=== PATIENT | female | born 1980 | race Caucasian/White ===

== ENCOUNTER → 2019-12-27 14:59 | Outpatient (CLI) | payer BC, SELFPAY ==
--- NOTE | ~2019-12-27 | MR_ITS ---
EXAMINATION: MR brain/brain stem wo con EXAM DATE: 12/27/2019 15:51 INDICATION: Headaches, visual disturbance. TECHNIQUE: Magnetic resonance imaging (MRI) of the brain/brain stem obtained without contrast. Sagitt al T1, axial diffusion, gradient echo (T2*), T1, T2, FLAIR sequences obtained. Comparison is made to prior examination from 06/11/2008. FINDINGS: Small arachnoid cyst in the posterior fossa medially just right of midline. This is not a c linically significant finding. There are no areas of restricted diffusion to suggest acute infarction . There is no acute hemorrhage seen on the T2*, a hemosiderin sensitive sequence. No intraparenchym al brain mass. The ventricles are normal in size. There are no extra-axial collections. Flow voids are seen in the cerebral arteries on the T2-weighted sequences consistent with their expected patency . The orbits are unremarkable. Soft tissue is unremarkable. IMPRESSION: 1. Small incidental posterior fossa arachnoid cyst. 2. Otherwise unremarkable brain MRI. Reviewed, dictated and finalized at location B.
== END ==
PROVIDERS: Visit Provider Internal Medicine
DX: R51 Headache (principal); H53.8 Other visual disturbances
CPT/HCPCS: 70551

== ENCOUNTER 2020-07-29 11:21 | Outpatient (CLI) | payer BC, SELFPAY ==
--- NOTE | ~2020-07-29 | XR_ITS ---
XR foot LT min 3V DATE: 07/29/2020 12:45 INDICATION: Plantar heel pain TECHNIQUE: 4 views COMPARISON: None FINDINGS: There is evidence of postoperative change from bunionectomy. There is mild to moderate osteoarthritic change at the first metatarsophalangeal joint. There is minimal plantar and posterior calcaneal enthesopathy. No fracture, dislocation, periosteal reaction or bone destruction is detected. 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
--- NOTE | ~2020-07-29 | XR_ITS ---
XR heel LT min 2V DATE: 07/29/2020 12:45 INDICATION: Left plantar heel pain TECHNIQUE: Axial and lateral views COMPARISON: None FINDINGS: There is mild plantar and posterior calcaneal enthesopathy. No fracture or dislocation or bone destruction of the calcaneus. IMPRESSION: Mild plantar and posterior calcaneal enthesopathy Reviewed, dictated and finalized at location A.
== END 2020-07-29 11:22 | disposition home or self-care (01) ==
LOC: CHSIMG 11:23
PROVIDERS: PCP Internal Medicine; Visit Provider Internal Medicine
DX: M79.672 Pain in left foot (principal)
CPT/HCPCS: 73630; 73650

== ENCOUNTER 2022-03-27 16:02 | Outpatient (CLI) | payer OTHER, SELFPAY ==
--- NOTE | ~2022-03-27 | XR_ITS ---
EXAMINATION: XR knee RT 3V DATE: 03/27/2022 16:29 INDICATION: Right knee pain TECHNIQUE: Three views of the right knee were obtained. COMPARISON: None. FINDINGS: Alignment is normal. No fracture or osteochondral lesion. There is mild tricompartmental os teoarthritis characterized by tiny marginal osteophytes. No joint effusion/synovitis. Soft tissues a re unremarkable. IMPRESSION: 1. No acute osseous abnormality. Reviewed, dictated and finalized at location F. ATIC TEACHER
== END 2022-03-27 16:03 | disposition home or self-care (01) ==
LOC: CHSIMG 16:07
PROVIDERS: PCP Internal Medicine; Visit Provider Internal Medicine
DX: M25.561 Pain in right knee (principal)
CPT/HCPCS: 73562

== ENCOUNTER 2022-04-16 16:06 | Outpatient (RCR) | payer OTHER, SELFPAY ==
--- NOTE | 2022-04-16 16:57 | PTOPEVAL1 ---
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 She reports that her knee feels unstable and her knee crackles a lot. She reports pain with walking and some difficulty when using stairs. She reports some swelling in her knee. Pt reports that sleep is mostly unaffected. Denies numbness and tingling around the knee. She points to pain on the lateral joint line and at the posterior portion of the joint. Pt reports that she has been able to push herself through her pain with all activities but notes she is sometimes slower with activities. Reported Pain Level Pain Score 4: Self Report Assessment PT Clinical Summary Pt presents to PT with R knee pain and demonstrates decreased range of motion, decreased strength, and antalgic gait. She presents with signs and symptoms consistent with potential meniscal or ligamentous involvement. Her current deficits make it more challenging for her to walk and bend/straighten her knee as needed for household activities, exercising, and keeping up with her family. She was provided with an HEP focused on improving mobility and strength within her tolerance. She will benefit from skilled PT to facilitate symptom relief, improve the aforementioned impairments, and return to functional and recreational activities. Plan of Care Interventions Electrical Stimulation,Gait Training,Hot Pack/Cold Pack,Intermittent Compression,Manual Therapy, Neuro Re-education,Patient/Caregiver Educati, Therapeutic Activities,Therapeutic Exercise PT Services Indicated Yes Treatment Frequency and 1x week for 6 visits Duration These treatments will address the objective and functional deficits as defined above. The patient will be advanced safely and appropriately in order for the patient to progress towards his/her prior level of function. Additional exercises will be introduced and as well as a comprehensive home exercise program upon discharge, if needed, ?to ensure carryover of functional gains achieved in the clinic. This treatment plan has been reviewed and agreement upon by the patient.
--- NOTE | 2022-07-16 09:13 | PCPTNOTE ---
mrs. kuo has not been back to skilled PT since 04/24/22. per her last note she continued to report severe pain, and feeling like the R knee was going to give out on her. as of this date, she will be DC'd from skilled PT services and all progress towards goals will be taken from her most recent evaluation/note.
== END 2022-04-24 23:59 | disposition home or self-care (01) ==
LOC: CHSPT 16:06
PROVIDERS: PCP Internal Medicine; Visit Provider Internal Medicine
DX: M25.561 Pain in right knee (principal)
CPT/HCPCS: 97016; 97110; 97140; 97161

== ENCOUNTER → 2022-05-29 16:17 | Outpatient (CLI) | payer OTHER, SELFPAY ==
--- NOTE | ~2022-05-29 | MR_ITS ---
EXAMINATION: MR knee RT wo con DATE: 05/29/2022 17:42 INDICATION: Right knee pain. TECHNIQUE: Magnetic resonance imaging (MRI) of the right knee was performed without intravenous contr ast. Sequences included axial PD-weighted FS FSE, coronal PD-weighted FSE and PD-weighted FS FSE, sag ittal PD-weighted FSE, and sagittal T2-weighted FS FSE. COMPARISON: Right knee radiographs 03/27/2022 FINDINGS: Medial compartment: Medial meniscus is normal. There is shallow partial-thickness cartilage loss of tibial condyle and fe moral condyle. Marginal osteophytes are noted. Lateral compartment: Lateral meniscus is normal. Lateral compartment cartilage is normal. Patellofemoral compartment: There is shallow partial-thickness cartilage loss of patellar medial and lateral facets and median ri dge. There is shallow partial-thickness cartilage loss of central and lateral trochlea. Osteophytes a re noted. Ligaments and tendons: Anterior and posterior cruciate ligaments are normal. Medial collateral ligament and lateral collater al ligament complex are normal. There is mild patellar tendinopathy. Fluid: There is a small knee joint effusion. There is trace fluid in a Fine's cyst. There is mild superfici al infrapatellar bursitis. IMPRESSION: 1. 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 2. Small knee joint effusion. Reviewed, dictated and finalized at location A. [facility] [employer]Y
== END ==
PROVIDERS: PCP Internal Medicine; Visit Provider Internal Medicine
DX: M25.461 Effusion, right knee (principal)
CPT/HCPCS: 73721

== ENCOUNTER 2022-07-31 10:48 | Outpatient (RCR) | payer OTHER, SELFPAY ==
--- NOTE | 2022-07-31 12:11 | PTOPEVAL1 ---
Assessment and note entered by JT File, PT Evaluation Information Assessment Status Evaluation Diagnosis R knee post op meniscus surgery. Onset 07/16/22 Subjective Information patient reports she is unsure how she initially injured the R knee. she reports she did have an injury prior to the knee hurting when she stubbed her toe on a step. she reports she did conservative treatment for knee pain, but ultimately needed meniscus surgery. she reports she has not bent her knee yet since the surgery. she reports she was told to move the ankle and lift the whole leg for her HEP after surgery. patient reports she has been limited to no bending of the knee, and no weight bearing on the R LE. CALLED MD OFFICE AND THEY REPORT SHE HAD A ROOT REPAIR. POST OP PROTOCOL WAS SENT FOR CHART. Reported Pain Level Pain Score 3: Self Report Assessment PT Clinical Summary mrs. kuo is a 42 yo woman who presents to skilled PT serviecs post R knee meniscus root repair. she is limited in rom and weight bearing for 6 weeks post op per protocol. she would benefit from continued skilled PT to address her objective/functional deficits within protocol and progress towards a return to her prior level functional activity performance/quality of life. Plan of Care Interventions Gait Training,Hot Pack/Cold Pack,Intermittent Compression,Manual Therapy,Neuro Re-education, Patient/Caregiver Educati,Therapeutic Activities, Therapeutic Exercise PT Services Indicated Yes Treatment Frequency and 2x weekly for 8 visits Duration These treatments will address the objective and functional deficits as defined above. The patient will be advanced safely and appropriately in order for the patient to progress towards his/her prior level of function. Additional exercises will be introduced and as well as a comprehensive home exercise program upon discharge, if needed, ?to ensure carryover of functional gains achieved in the clinic. This treatment plan has been reviewed and agreement upon by the patient.
--- NOTE | 2022-09-03 17:38 | PTOPREEVAL ---
Assessment and note entered by JT File, PT Evaluation Information Assessment Status Re-evaluation Diagnosis R knee post op meniscus surgery. Onset 07/16/22 Subjective Information patient reports she feels better this date. she reports she does feel she has more swelling lately . she reports she has been working and been up on her feet more. she reports she is confused about her weight bearing status while walking. she reports she is nervous to put too much weight through the R LE. Reported Pain Level Pain Score 2: Self Report Pain Score 4: Self Report Assessment PT Clinical Summary mrs. kuo presents to skilled PT services for her 8th skilled therapy visit. as of this date, she has made great progress in her rom of the R knee. she continues to have swelling, but has progressed to 50% weight bearing. she is now in phase 3 of the post operative protocol, and is allowed to progress to WBAT 25% at a time. she would benefit from skilled PT services to continue to progress towards return to prior level weight bearing, strength, and gait mechanics slowly following her post operative protocol. Plan of Care Interventions Gait Training,Hot Pack/Cold Pack,Intermittent Compression,Manual Therapy,Neuro Re-education, Patient/Caregiver Educati,Therapeutic Activities, Therapeutic Exercise PT Services Indicated Yes Treatment Frequency and continue skilled PT 2x weekly for 8 more visits Duration These treatments will address the objective and functional deficits as defined above. The patient will be advanced safely and appropriately in order for the patient to progress towards his/her prior level of function. Additional exercises will be introduced and as well as a comprehensive home exercise program upon discharge, if needed, ?to ensure carryover of functional gains achieved in the clinic. This treatment plan has been reviewed and agreement upon by the patient.
== END 2022-09-24 23:59 | disposition home or self-care (01) ==
LOC: CHSPT 10:48
DX: S83.241D Other tear of medial meniscus, current injury, right knee, subsequent encounter (principal)
CPT/HCPCS: 97016; 97110; 97112; 97161; 97530

== ENCOUNTER 2023-01-31 08:33 | Outpatient (CLI) | payer OTHER, SELFPAY ==
[2023-01-31 08:56] LABS: Basophils Absolute Auto 0.04 K/mm3 (0.00-0.10); Basophils Percent Auto 0.6 % (0.0-1.0); Eosinophils Absolute Auto 0.19 K/mm3 (0.02-0.50); Eosinophils Percent Auto 2.7 % (1.0-6.0); Hematocrit 40.4 % (35.0-49.0); Hemoglobin 14.2 g/dL (12.0-15.0); Immature Granulocyte Absolute 0.04 K/mm3 (0.00-0.00); Immature Granulocyte Percent A 0.6 % (0.0-0.0); Lymphocytes Absolute Auto 2.77 K/mm3 (1.10-4.50); Lymphocytes Percent Auto 39.3 % (18.0-42.0); Mean Corpuscular HGB Conc 35.1 g/dL (32.0-36.0); Mean Corpuscular Hemoglobin 34.3 pg (27.0-31.0); Mean Corpuscular Volume 97.6 fL (78.0-102.0); Monocytes Absolute Auto 0.44 K/mm3 (0.10-0.90); Monocytes Percent Auto 6.2 % (2.0-11.0); Neutrophils Absolute Auto 3.6 K/mm3 (1.7-7.2); Neutrophils Percent Auto 50.6 % (50.0-70.0); Platelet Count Result 276 K/mm3 (150-420); Red Blood Count 4.14 M/mm3 (4.20-5.40); Red Cell Distribution Width 12.8 % (11.6-14.4); White Blood Count 7.1 K/mm3 (4.8-10.8)
[2023-01-31 09:09] LABS: Appearance Urine Clear (Clear); Bilirubin Urine Negative (Negative); Blood Urine Trace-Intact (Negative); Color Urine Light Yellow (Yellow); Glucose Urine UA Negative (Negative); Ketones Urine Negative (Negative); Leukocyte Esterase Ur 2+ (Negative); Nitrate Urine Negative (Negative); Protein Urine Negative (Negative); Specific Grav Ur >= 1.030 (1.010-1.020); Urobilinogen Urine 0.2 mg/dL (0.2-1.0); pH Urine 5.5 (5.0-8.0)
[2023-01-31 09:44] LABS: Add Urine Microscopic? YES; Bacteria Urine Rare /hpf; RBC Urine 0-2 /hpf (0-2); Squamous Epithelial Cell Urine Moderate /hpf (Few)
[2023-01-31 09:45] LABS: Mucus Urine Moderate /lpf
[2023-01-31 10:23] LABS: Alanine Aminotransferase 55 U/L (14-59); Alkaline Phosphatase 100 U/L (46-116); Anion Gap 13 mmol/L (8-16); Aspartate Amino Transferase 26 U/L (15-37); Bilirubin,Total 0.6 mg/dL (0.00-1.00); Blood Urea Nitrogen 11 mg/dL (7-18); CRP 0.7 mg/dL (0.0-0.9); Calcium 9.6 mg/dL (8.5-10.1); Carbon Dioxide 25 mmol/L (21-32); Chloride 104 mmol/L (98-108); Cholesterol 251 mg/dL (0-200); Creatine Kinase 140 U/L (26-192); Estimated Glomerular Filt Rate > 60; Free T3 3.12 pg/mL (2.18-3.98); Glucose 89 mg/dL (70-99); HDL Direct 38 mg/dL (40-60); LDL Cholesterol Calculated 150 mg/dL (<130); Osmolality Calculated 292 mOsm/kg (285-295); Potassium 4.4 mmol/L (3.5-5.1); Sodium 142 mmol/L (136-145); Thyroid Stimulating Hormone 1.07 uIU/mL (0.36-3.74); Total Protein 7.2 g/dL (6.4-8.2); Triglycerides 314 mg/dL (0-150)
[2023-02-05 12:01] LABS: Aldolase 6.2 U/L (<=8.1)
== END 2023-01-31 08:34 | disposition home or self-care (01) ==
LOC: CHSLAB 08:35
PROVIDERS: PCP Internal Medicine; Visit Provider Internal Medicine
DX: Z00.00 Encounter for general adult medical examination without abnormal findings (principal); R51.9 Headache, unspecified; M35.3 Polymyalgia rheumatica
CPT/HCPCS: 36415; 80053; 80061; 81001; 82085; 82550; 84439; 84443; 84481; 85025; 86140

== ENCOUNTER 2023-06-22 08:39 | Emergency (ER) | payer OTHER, SELFPAY ==
[2023-06-22 08:39] VITALS: BP 143/101; PULSE 88; RESP 20; TEMP 36.1; O2SAT 96
--- NOTE | 2023-06-22 08:58 | ED.GENADULT ---
HPI - General Adult General Chief complaint: Skin/Abscess/Foreign Body Stated complaint: rash Time Seen by Provider: 06/22/23 08:50 History of Present Illness HPI narrative: 43 years old white female drove herself to the emergency room complaining of itching rash at the upper extremities, lower extremities and front of the abdomen started last night. Patient started on diet medications 1 month ago, patient also been cleaning removing old carpets at home in the last few weeks. She denies difficulty swallowing or breathing. History of IV contrast allergy. Related Data Home Medications Medication Instructions Recorded Confirmed erenumab-aooe 140 mg/mL 140 mg subcut MONTHLY 06/22/23 06/22/23 subcutaneous auto-injector (Aimovig Autoinjector) ondansetron 4 mg disintegrating 4 mg PO Q6-8H PRN Nausea 06/22/23 06/22/23 tablet Allergies Allergy/AdvReac Type Severity Reaction Status Date / Time egg Allergy Mild Hives Verified 06/22/23 08:48 iodine Allergy Mild CONTRAST Unverified 06/22/23 08:48 DYE Contrast Media Allergy Mild RAISED Uncoded 05/30/22 14:37 AREA REDDENED Review of Systems Review of Systems: All systems reviewed & are unremarkable except as noted in HPI and below Exam Narrative: General appearance: Well-developed, well-nourished Skin: Normal color , scattered hives upper extremity lower extremity abdomen anteriorly Head: Normocephalic, nontraumatic Eyes: Clear conjunctiva ENT: Oropharynx normal, ears normal, nose normal Neck: Supple, nontender Chest and respiratory: Airway patent, no respiratory distress, no accessory muscle use Heart: Regular rate/rhythm Abdomen: Soft, nontender, no organomegaly, quiet bowel sounds Vascular: Normal peripheral pulses, normal capillary refill. Musculoskeletal: Normal range of motion, nontender back Neurologic: Alert and oriented ?3, ANIMAL NURSE is normal as tested, no gross motor deficit Course Vital Signs Vital signs: Vital Signs Temperature 36.1 C L 06/22/23 08:39 Pulse Rate 88 06/22/23 08:39 Respiratory Rate 20 06/22/23 08:39 Blood Pressure 143/101 H 06/22/23 08:39 Pulse Oximetry 96 06/22/23 08:39 Oxygen Delivery Room Air 06/22/23 08:39 Temperature 36.1 C L 06/22/23 08:39 Pulse Rate 88 06/22/23 08:39 Respiratory Rate 20 06/22/23 08:39 Blood Pressure 143/101 H 06/22/23 08:39 Pulse Oximetry 96 06/22/23 08:39 Oxygen Delivery Room Air 06/22/23 08:39 Medical Decision Making MDM Narrative Medical decision making narrative: in the ED patient received epinephrine shot, 60 mg prednisone p.o., with remarkable improvement. Contact dermatitis versus drug induced dermatitis is my concern. Differential Diagnosis Differential Diagnosis: contact dermatitis , drug induced allergy, cleaning old carpet related allergy Vital Signs Vital Signs: Vital Signs Temperature 36.1 C L 06/22/23 08:39 Pulse Rate 88 06/22/23 08:39 Respiratory Rate 20 06/22/23 08:39 Blood Pressure 143/101 H 06/22/23 08:39 Pulse Oximetry 96 06/22/23 08:39 Oxygen Delivery Room Air 06/22/23 08:39 Temperature 36.1 C L 06/22/23 08:39 Pulse Rate 88 06/22/23 08:39 Respiratory Rate 20 06/22/23 08:39 Blood Pressure 143/101 H 06/22/23 08:39 Pulse Oximetry 96 06/22/23 08:39 Oxygen Delivery Room Air 06/22/23 08:39 Critical Care Time Critical Care Time Critical Care Time: No Discharge Plan Discharge Clinical Impression: Allergic reaction Patient Disposition: Home, Self-Care Condition: Stable Instructions: Urticaria (ED) Additional Instructions: Return if symptoms are worsening , call your family namrata
[2023-06-22] MEDS: predniSONE 20 MG TABLET 60 MG PO (09:07)
[2023-06-22] MEDS: EPINEPHrine HCL INJ 1 MG/ML AMPUL 0.3 MG IM (09:07)
== END 2023-06-22 09:21 | disposition home or self-care (01) ==
LOC: CHSED 09:07
PROVIDERS: Emergency Provider Emergency Medicine; PCP Internal Medicine
DX: T78.40XA Allergy, unspecified, initial encounter (principal)
CPT/HCPCS: 96372; 99283; J0171; J7512

== ENCOUNTER 2024-02-24 08:00 | Outpatient (RCR) | payer OTHER, SELFPAY ==
--- NOTE | 2024-02-24 08:04 | OPREHPOC ---
Outpatient Therapy Plan of Care This is a Multidisciplinary Plan of Care that may contain components documented by all disciplines (PT, OT, and ST.) PT Problem 1 PT Problem #1 Knowledge Deficit PT Goal 1 Goal / Goal Update The patient will be independent in a home exercise program. Target Visit 4 PT Problem 2 PT Problem #2 Pain PT Goal 1 Goal / Goal Update The patient will report no greater than 2/10 right knee pain with ambulation. Target Visit 9 PT Problem 3 PT Problem #3 Impaired Range of Motion PT Goal 1 Goal / Goal Update 1. The patient will demonstrate 0 degrees right knee extension AROM to normalize gait. 2. The patient will demonstrate 120 degrees right knee flexion AROM to navigate stairs reciprocally. Target Visit 18 PT Problem 4 PT Problem #4 Impaired Strength PT Goal 1 Goal / Goal Update The patient will demonstrate 5/5 strength in the right hip and knee to perform ADLs. Target Visit 18 PT Problem 5 PT Problem #5 Impaired Functional Mobil PT Goal 1 Goal / Goal Update 1. The patient will demonstrate 25% or less self perceived disability per the LEFS. 2. The patient will demonstrate the ability to ambulate 1,200 feet during the 6 minute walk test without an AD to return to community ambulation. Target Visit 18
--- NOTE | 2024-02-24 08:05 | PTOPEVAL1 ---
Assessment and note entered by Jackie Walters, PT Evaluation Information Assessment Status Evaluation Diagnosis s/p R TKA ICD-10 Condition Codes (PT) M25.561 Subjective Information Jackie Espinal reports she had her right knee replaced on 02/17/24. She has a history of meniscus root repair approximately a year ago. She re-tore the meniscus and developed osteoarthritis. She tried injections and that failed too. She is using a CPM at home for about 4 hours. She is not having home health and has been using a walker for ambulation. She reports pain comes and goes. She reports her knee pain is preventing her from sleeping well and she has been having tingling around the knee. She reports she is using pain medication regularly because she tried to go without and had a lot of pain. heels slides, ankle pumps, quad set Reported Pain Level Pain Score 5: Self Report Assessment PT Clinical Summary Jackie Espinal presents 1 week s/p right total knee arthroplasty. She is having difficulty with sleeping, walking, standing, and bending her knee. She objectively demonstrates decreased right knee AROM, decreased right knee and hip strength, impaired balance, impaired gait, and decreased functional abilities. She will benefit from skilled PT to address these limitations. Plan of Care Interventions Electrical Stimulation,Gait Training,Hot Pack/Cold Pack,Intermittent Compression,Manual Therapy, Neuro Re-education,Patient/Caregiver Educati, Therapeutic Activities,Therapeutic Exercise PT Services Indicated Yes Treatment Frequency and 3 times a week for 18 visits Duration These treatments will address the objective and functional deficits as defined above. The patient will be advanced safely and appropriately in order for the patient to progress towards his/her prior level of function. Additional exercises will be introduced and as well as a comprehensive home exercise program upon discharge, if needed, ?to ensure carryover of functional gains achieved in the clinic. This treatment plan has been reviewed and agreement upon by the patient.
--- NOTE | 2024-03-15 08:57 | PTOPPROG ---
Assessment and note entered by Vladimir [facility] Evaluation Information Assessment Status Progress Diagnosis s/p R TKA ICD-10 Condition Codes (PT) M25.561 Onset 02/17/24 Subjective Information Pt. reports she has been very sore all weekend. She states that she has gotten more active at home . She continues to not tightness limiting the knee mobility. She states that she is taking time to elevate the knee. She states that she would like to continue to improve right knee mobility. Assessment PT Clinical Summary Pt. has attended a total of 10 treatment sessions. She has progressed in regards to strength, ROM and gait. She continues to have faulty mechanics with ambulation and continues to present with edema at the right knee. At this time continued treatment per POC is indicated in order to further reduce edema, improve strength, improve extension and and achieve normal gait. Plan of Care Interventions Electrical Stimulation,Gait Training,Hot Pack/Cold Pack,Intermittent Compression,Manual Therapy, Neuro Re-education,Patient/Caregiver Educati, Therapeutic Activities,Therapeutic Exercise PT Services Indicated Yes Treatment Frequency and Continue treatment 3x/week for 6 visits Duration These treatments will address the objective and functional deficits as defined above. The patient will be advanced safely and appropriately in order for the patient to progress towards his/her prior level of function. Additional exercises will be introduced and as well as a comprehensive home exercise program upon discharge, if needed, ?to ensure carryover of functional gains achieved in the clinic. This treatment plan has been reviewed and agreement upon by the patient.
--- NOTE | 2024-03-30 16:27 | OPREHPOC ---
Outpatient Therapy Plan of Care This is a Multidisciplinary Plan of Care that may contain components documented by all disciplines (PT, OT, and ST.) PT Problem 1 PT Problem #1 Knowledge Deficit PT Goal 1 Goal / Goal Update The patient will be independent in a home exercise program. Target Visit 4 Progress Met PT Problem 2 PT Problem #2 Pain PT Goal 1 Goal / Goal Update The patient will report no greater than 2/10 right knee pain with ambulation. Target Visit 9 Progress Not Met PT Problem 3 PT Problem #3 Impaired Range of Motion PT Goal 1 Goal / Goal Update 1. The patient will demonstrate 0 degrees right knee extension AROM to normalize gait. 2. The patient will demonstrate 120 degrees right knee flexion AROM to navigate stairs reciprocally. Target Visit 18 Progress Met PT Problem 4 PT Problem #4 Impaired Strength PT Goal 1 Goal / Goal Update The patient will demonstrate 5/5 strength in the right hip and knee to perform ADLs. Target Visit 18 Progress Met PT Problem 5 PT Problem #5 Impaired Functional Mobil PT Goal 1 Goal / Goal Update 1. The patient will demonstrate 25% or less self perceived disability per the LEFS. 2. The patient will demonstrate the ability to ambulate 1,200 feet during the 6 minute walk test without an AD to return to community ambulation. Target Visit 18 Progress Met
--- NOTE | 2024-03-30 16:27 | PTOPDC ---
Assessment and note entered by JT File, PT Evaluation Information Assessment Status Discharge Diagnosis s/p R TKA ICD-10 Condition Codes (PT) M25.561 Onset 02/17/24 Subjective Information patient had her follow up with the MD today. she reports she did have a Doppler of the R LE and is negative for any clots. she reports she returns to see her surgeon on 04/13/24. she reports the knee still swells. she reports she feels the most pain in the calf and the front of the thigh of the R LE. she reports she returns to work tomorrow. Reported Pain Level Pain Score 4: Self Report Assessment PT Clinical Summary mrs. kuo presents to skilled PT for her 16th skilled PT visit. she presents today having met all goals for skilled PT except for her pain levels. her pain now is less with the knee and more muscular in the quadriceps and gastroc of the R LE. she was educated in exercises to improve her flexibility in these muscles that will help to reduce these symptoms. she will DC skilled PT and continue with HEP independent at home. Plan of Care PT Services Indicated Yes
== END 2024-03-30 16:33 | disposition home or self-care (01) ==
LOC: CHSPT 08:00
PROVIDERS: Visit Provider Orthopaedic Surgery
DX: Z47.1 Aftercare following joint replacement surgery (principal); Z96.651 Presence of right artificial knee joint
CPT/HCPCS: 97014; 97016; 97110; 97116; 97150; 97161; 97530; G0283

== ENCOUNTER 2024-05-19 12:54 | Outpatient (CLI) | payer OTHER, SELFPAY ==
--- NOTE | ~2024-05-19 | MM_ITS ---
EXAMINATION: MM screening tyler BI w dolly HISTORY: Screening TECHNIQUE: Craniocaudal and mediolateral oblique 3-D tomosynthesis images were obtained and synthetic 2-D images were generated. CAD analysis was submitted and interpreted. COMPARISON: No prior mammogram is available for comparison at this institution. BREAST PARENCHYMAL COMPOSITION: Not Dense: The breasts are almost entirely fatty. FINDINGS: There is an oval 12 mm mass in the lower outer quadrant of the left breast, posterior third . There are no suspicious calcifications, architectural distortion or masses in the right breast to s uggest malignancy. IMPRESSION: 1. Left breast mass, lower outer quadrant, posterior third. 2. Additional mammographic views and possible breast ultrasound are recommended. BI-RADS Category 0: Incomplete: Needs additional imaging evaluation. Reviewed, dictated and finalized at location B. RINTENDENT MAINTENANCE IMPRESSION: 1. Left breast mass, lower outer quadrant, posterior third. 2. Additional mammographic views and possible breast ultrasound are recommended . BI-RADS Category 0: Incomplete: Needs additional imaging evaluation.
== END 2024-05-19 12:55 | disposition home or self-care (01) ==
PROVIDERS: PCP Internal Medicine; Visit Provider Internal Medicine
DX: Z12.31 Encounter for screening mammogram for malignant neoplasm of breast (principal); R92.8 Other abnormal and inconclusive findings on diagnostic imaging of breast
CPT/HCPCS: 77063; 77067

== ENCOUNTER 2024-05-21 08:54 | Outpatient (CLI) | payer OTHER, SELFPAY ==
--- NOTE | ~2024-05-21 | MMUS_ITS ---
EXAMINATION: MM diagnostic tyler LT w dolly, US breast LT limited HISTORY: Follow-up left breast mass TECHNIQUE: Additional 3-D tomosynthesis images of the left breast were performed and synthetic 2-D im ages were generated. CAD analysis was submitted and interpreted. High resolution Limited left breast ultrasound was performed. COMPARISON: 05/19/2024 BREAST PARENCHYMAL COMPOSITION: Not Dense: The breasts are almost entirely fatty. FINDINGS: MAMMOGRAPHIC FINDINGS: There is an oval mass with indistinct margins in the lower outer quadrant of the left breast, posteri or third. There are 2 associated punctate calcifications. ULTRASOUND: Limited left breast ultrasound: At 5:00, 10 cm from the nipple there is an oval hypoechoic mass which is mostly solid with dense posterior shadowing, parallel orientation, circumscribed margins measurin g 13 x 9 x 5 mm. No internal vascularity. IMPRESSION: 1. Oval 13 mm left breast mass at 5:00, 10 cm from the nipple. 2. Ultrasound-guided left breast biopsy recommended. BI-RADS category 4, suspicious findings. Reviewed, dictated and finalized at location B. [employer] IMPRESSION: 1. Oval 13 mm left breast mass at 5:00, 10 cm from the nipple. 2. Ultrasound-guided left breast biopsy recommended. BI-RADS category 4, suspicious findings.
== END 2024-05-21 08:55 | disposition home or self-care (01) ==
PROVIDERS: PCP Internal Medicine; Visit Provider Internal Medicine
DX: R92.8 Other abnormal and inconclusive findings on diagnostic imaging of breast (principal)
CPT/HCPCS: 76642; 77061; 77065; G0279

== ENCOUNTER 2024-06-13 13:57 | Emergency (ER) | payer OTHER, SELFPAY ==
[2024-06-13 13:58] VITALS: BP 144/100; PULSE 103; RESP 18; TEMP 36.6; O2SAT 97
--- OUTSIDE RECORDS SUMMARY | 2024-06-13 13:59 | XMS_ITS | Clinical Summary ---
Author Organization [facility] Address [address] [place] [address] Phone Care Team Providers Care Marketing Effectiveness Manager Name Role Phone Duke Castillo MD Primary Care Provider Allergies Active Allergy Reactions Criticality Noted Date Comments Iodinated Contrast Media Hives High 12/24/2013 Medications HYDROcodone-acet aminophen (VICODIN HP) 10-300 mg Tablet Take 1 Tab by mouth every 4 hours as needed. Active CYCLOBENZAPRINE HCL (FLEXERIL ORAL) Take by mouth. Active diclofenac sodium (VOLTAREN) 75 mg Tablet, Delayed Release (E.C.) Take 75 mg by mouth 2 times daily. Active pentosan polysulfate sodium (ELMIRON) 100 mg CapsuleIndicatio ns:Bladder pain Take 1 Cap by mouth 3 times daily before meals. 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 Gender Identity Not on file Sexual Orientation Not on file 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 Not on file Not on valente e Not on file Last Filed Vital Signs Vital Sign Reading Time Taken Comments Blood Pressure 138/70 12/24/2013 8:44 AM CDT Pulse - - Temperature - - Respiratory Rate - - Oxygen Saturation - - Inhaled Oxygen Concentration - - Weight 96.6 kg (213 lb) 12/24/2013 8:44 AM CDT Height 163.8 cm (5' 4.5 ) 12/24/2013 8:44 AM CDT Body Mass Index 36 12/24/2013 8:44 AM CDT Plan of Treatment Health Maintenance Due Date Last Done Comments DTAP/TDAP/TD VACCINES (1 - Tdap) 1999 HEPATITIS B VACCINES (1 of 3 - 19+ 3-dose series) 1999 CERVICAL CANCER SCREENING 05/12/20142011 (Previously completed) BREAST CANCER SCREENING 2020 INFLUENZA VACCINE (#1) 2023 Preventative Visit- Commercial 05/12/2024 HPV VACCINES Aged Out No longer eligi ble based on patient's age to complete this topic Insurance [employer]UE PPO Care Teams Marketing Effectiveness Manager Relationship Specialty [place] [id number] [address] PCP - General 01/08/00
--- OUTSIDE RECORDS SUMMARY | 2024-06-13 13:59 | XMS_ITS | Encounter Summary ---
Author Organization [facility] Address [address] [facility] [address] [place] [address] Phone Care Team Providers Care Heel Cover Splitter Name Role Phone Yehuda Hearn MD Primary Care Provider [phone] Yehuda Hearn MD Unavailable [phone] Jeff Browne NP Unavailable [phone] Reason for Visit * Reason Onset Date Comments Medical Question/Miscellaneous 06/04/2024 Encounter Details Date Type Department Care Team (Late st Contact Info) Description 06/04/2024 Telephone [facility] Surgery [address] [facility] Floor [address] [place] [address] Annamarie Harper NP [address] [address] Medical Question/Miscellaneous Social History Tobacco Use Types Packs/Day Years Used Date Smoking Tobacco: Never Smokeless Tobacco: Never AUDIT-C Answer Date Recorded Q1: How often do you have a drink containing alcohol? Never 05/27/2024 Q2: How many drinks containi ng alcohol do you have on a typical day when you are drinking? Patient does not drink Q3: How often do you have si x or more drinks on one occasion? Never 05/27/2024 PHQ-2 Answer Date Recorded PHQ-2 Total Score (If total score is 3 or more points, staff should administer the PHQ-9) 1 06/12/2023 Personal Safety Answer Date Recorded Have you ever been in or are you currently in a harmful physical or emotional relationship or is someone making you feel afraid or unsafe? Denies 02/17/2024 Comments No Sex and Gender Information Value Date Recorded Sex Assigned at Not on file Legal Sex Female 4:57 AM ARCH PAD CEMENTER Gender Identity Female 02/05/2024 9:37 AM CDT Sexual Orientation Straight 12/24/2022 10 :40 AM CDT documented as of this encounter Miscellaneous Notes * Telephone Encounter - Maria Elena Peña - 06/04/2024 2:40 PM CST Patient Query: Was an attempt to transfer to the assigned clinical staff or backline? no Reason for call?: Patient requesting to change their ultrasound to the same day as their return appt so they don't have to take 2 days off of work for them please (Read message back to caller and ask them if there is anything else they'd like to add to the message) Who is the caller: Jackie Espinal What is the best number for them to contact for a call back: [phone] PAD CEMENTER documented in this encounter Plan of Treatment Not on file documented as of this encounter Visit Diagnoses Not on filedocumented in this encounter Care Teams Heel Cover Splitter Relationship Specialty Start Date End Date Yehuda Hearn MD PCP - General 04/24/20 Yehuda Hearn MD Internal Medicine 04/24/20 Jeff Browne NP [address] [place] [address] [address] DANIELSON [address] [place] [id number] Nurse Practitioner Orthopedic Surgery 02/17/24 documented as of this encounter
--- OUTSIDE RECORDS SUMMARY | 2024-06-13 13:59 | XMS_ITS | Clinical Summary ---
Author Organization [facility] Address [address] [place] [address]. [place], [place] [address] [place] [address] Care Team Providers Care Internal Control Specialist Name Role Phone Yehuda Hearn MD Primary Care Provider [phone] Allergies No known active allergies Medications rizatriptan 10 MG disintegrating tablet Take 10 mg by mouth as needed for Migraine. May repeat in 2 hours if needed times one dose Active SUMAtriptan 100 MG tablet Take 100 mg by mouth 2 (two) times daily as needed for Migraine. Take 1 tablet at onset of symptoms, may take 1 tablet 2 hours later. Max of 2 tablets in 24-hour period. Active predniSONE 20 MG tablet Take 20 mg by mouth daily. Active Active Problems No known active problems Family History Medical History Relation Comments No Known Problems Brother No Known Problems Father Diabetes Mother Heart Disease Mother Hyperlipidemia Mother Hypertension Mother Relation Status Comments Brother Father Mother Alive Social History Tobacco Use Types Packs/Day Years Used Date Smoking Tobacco: Never Smokeless Tobacco: Never Alcohol Use Standard Drinks/Week Comments Yes 0 (1 standard drink = 0.6 oz pur e alcohol) rarely Comments No Sex and Gender Information Value Date Recorded Sex Assigned at Not on file Legal Sex Female 4:14 PM CDT Gender Identity Not on file Sexual Orientation Not on file Last Filed Vital Signs Vital Sign Reading Time Taken Comments Blood Pressure 148/102 12/23/2019 5:08 AM CDT Pulse 68 12/23/2019 5:08 AM CDT Temperature 37 ??C (98.6 ??F) 12/23/2019 5:08 AM CDT Respiratory Rate 20 12/23/2019 5:08 AM CDT Oxygen Saturation 100% 12/23/2019 5:08 AM CDT Inhaled Oxygen Concentration - - Weight 98.9 kg (218 lb) 12/23/2019 5:08 AM CDT Height 167.6 cm (5' 6 ) 12/23/2019 5:08 AM CDT Body Mass Index 35.19 12/23/2019 5:08 AM CDT Plan of Treatment Health Maintenance Due Date Last Done Comments Annual Physical 1983 Hepatitis C 1998 DTaP, Tdap and Td Vaccines ( 1 - Tdap) 1999 Hepatitis B Vaccines (1 of 3 - 19+ 3-dose series) 1999 Mammogram Screening 2020 COVID-19 Vaccine (2023-2 5 season) 2024 Influenza Adult (#1) 2024 HPV Vaccines Aged Out No longer eligi ble based on patient's age to complete this topic Meningococcal B Vaccine Aged Out No l onger eligible based on patient's age to complete this topic Meningococcal Vaccine Aged Out No josue jack eligible based on patient's age to complete this topic Pneumococcal Vaccine: Pediat rics (0 to 5 Years) and At-Risk Patients (6 to 64 Years) Aged Out No longer eligible b ased on patient's age to complete this topic RSV Immunizations Under 20 Months Aged Out No longer eligible based on patient's age to complete this topic Insurance [facility] Care Teams Internal Control Specialist Relationship Specialty Start Date End Date Yehuda Hearn MD [address] [place] [address] PCP - General INTERNAL MEDICINE 01/07/19
--- OUTSIDE RECORDS SUMMARY | 2024-06-13 13:59 | XMS_ITS | Referral Summary ---
Author Organization [facility] Address [address] [place] [address] Care Team Providers Care Facility Maintenance Mechanic Name Role Phone Yehuda Hearn MD Primary Care Provider [phone] Yehuda Hearn MD Unavailable [phone] Jeff Browne NP Unavailable [phone] Encounters Date Type Department Care Team Description 06/04/2024 Telephone [facility] [address] [place] [address] Floor [address] [place] [address] Annamarie Harper NP Medical Question/Miscellane ous 06/03/2024 5:23 PM ASSURANCE OFFICER - 06/03/2024 11:59 PM ASSURANCE OFFICER Hospital Encounter [facility] [address] [place] [address] Discharge Disposition: Discharge to home or self care 06/01/2024 Orders Only [facility] [address] [place] [address] 8 [place] [address] Annamarie Harper, UMA 05/28/2024 Orders Only [facility] [address] [place] [address] 8 [place] [address] Jocelyn Mandel RN Abnormal mammogram (Primary Dx); Mass of lower outer quadrant of left breast 05/27/2024 7:46 AM ASSURANCE OFFICER - 05/27/2024 11:59 PM ASSURANCE OFFICER Hospital Encounter [facility] [address] [place] [address] [address] [address] Discharge Disposition: Discharge to home or self care 05/27/2024 3:45 PM ASSURANCE OFFICER Office Visit [facility] [address] [place] [address] [address] [address] Jeff Browne NP Status post total knee replacement, right (Primary Dx); Sprain of medial collateral ligament of right knee, subsequent encounter 05/21/2024 9:20 AM ASSURANCE OFFICER Ancillary Procedure [facility] 05/21/2024 9:10 AM ASSURANCE OFFICER Ancillary Procedure [facility] 05/19/2024 1:10 PM ASSURANCE OFFICER Ancillary Procedure [facility] 04/29/2024 7:45 AM ASSURANCE OFFICER - 04/29/2024 11:59 PM ASSURANCE OFFICER Hospital Encounter [facility] [address] [place] [address] [address] [address] Discharge Disposition: Discharge to home or self care 04/29/2024 2:00 PM ASSURANCE OFFICER Office Visit [facility] [address] [place] [address] [address] [address] Jeff Browne NP Status post total knee replacement, right (Primary Dx); Sprain of medial collateral ligament of right knee, initial encounter 04/13/2024 7:56 AM ASSURANCE OFFICER - 04/13/2024 11:59 PM ASSURANCE OFFICER Hospital Encounter [facility] [address] [place] [address] [address] [address] Discharge Disposition: Discharge to home or self care 04/13/2024 3:45 PM ASSURANCE OFFICER Office Visit [facility] [address] [place] [address] [address] [address] Jeff Browne NP Status post total knee replacement, right (Primary Dx) 03/30/2024 11:00 AM ASSURANCE OFFICER Office Visit [facility] [address] [place] [address] [address] [place] [address] Valarie Marcelo NP Status post total knee replacement, right (Primary Dx) 03/30/2024 7:11 AM ASSURANCE OFFICER - 03/30/2024 11:59 PM ASSURANCE OFFICER Hospital Encounter [facility] [address] [place] [address] Status post total knee replacement, right Discharge Disposition: Discharge to home or self care 03/29/2024 Orders Only [facility] [address] [place] [address] [address] [place] [address] Piotr Hallman PA Status post total knee replacement, right (Primary Dx) 03/29/2024 Orders Only [facility] [address] [place] [address] [address] [place] [address] Piotr Hallman PA Status post total knee replacement, right (Primary Dx) 03/29/2024 Telephone [facility] [address] [place] [address] Piotr Hallman PA 03/19/2024 Telephone [facility] [address] [place] [address] [address] [place] [address] Roosevelt Winchester MD from Last 3 Months Allergies Active Allergy Reactions Criticality Noted Date Comments Iodinated Contrast Media Hives High 12/24/2013 Topiramate Other (See comments) Low 04/03/2020 Ringing in ears Medications erenumab-aooe 140 mg/mL auto-injector Inject 140 mg under the skin every 28 (twenty-eight) days 3 mL 3 3 Active rizatriptan (MAXALT) 10 mg tabletIndicatio ns:Migraine Take 1 tablet (10 mg total) by mouth once as needed for migraine May repeat in 2 hours if unresolved. Do not exceed 30 mg in 24 hours. 27 tablet 3 3 Active ondansetron (ZOFRAN) 4 mg tabletIndicatio ns:Prevention of Post-Operative Nausea and Vomiting Take 1 tablet (4 mg total) by mouth every 6 (six) hours as needed for nausea or vomiting 30 tablet 1 4 Active diclofenac sodium (VOLTAREN) 1 % gel Apply 4 g topically 4 (four) times a day 100 g 3 4 Active celecoxib (CeleBREX) 100 mg capsule Take 1 capsule (100 mg total) by mouth 2 (two) times a day 60 capsule 1 4 Active pregabalin (LYRICA) 75 mg capsule 4 Active HYDROcodone-travis taminophen (NORCO) 5-325 mg per tabletIndicatio ns:Pain Take 1-2 tablets by mouth every 4 (four) hours as needed for pain Max 8 tabs per day 42 tablet 5 Active Active Problems Problem Noted Date Diagnosed Date S/P TKR (total knee replacement), right 02/17/20 Primary osteoarthritis of right knee 01/30/2024 Tear of medial meniscus of knee 06/28/2022 09/23/2022 Migraine without aura, with intractable migraine, so stated, with status migrainosus 04/05/2020 Subarachnoid cyst 04/05/2020 Endometriosis 12/24/2013 Chronic pelvic pain in female 12/24/2013 Bladder pain 12/24/2013 09/23/2022 Social History Tobacco Use Types Packs/Day Years Used Date Smoking Tobacco: Never Smokeless Tobacco: Never Tobacco Cessation:Counseling Given: Not Answered AUDIT-C Answer Date Recorded Q1: How often [...] on file Legal Sex Female 4:57 AM ASSURANCE OFFICER Gender Identity Female 02/05/2024 9:37 AM CDT Sexual Orientation Straight 12/24/2022 10 :40 AM CDT Last Filed Vital Signs Vital Sign Reading Time Taken Comments Blood Pressure 128/70 05/27/2024 3:48 PM ASSURANCE OFFICER Pulse 76 05/27/2024 3:48 PM ASSURANCE OFFICER Temperature 36.4 ??C (97.6 ??F) 02/17/2024 3:58 PM CD T Respiratory Rate 16 02/17/2024 3:58 PM CDT Oxygen Saturation 99% 02/17/2024 3:58 PM CDT Inhaled Oxygen Concentration - - Weight 108.9 kg (240 lb) 05/27/2024 3:48 PM ASSURANCE OFFICER Height 170.2 cm (5' 7 ) 05/27/2024 3:48 PM ASSURANCE OFFICER Body Mass Index 37.59 05/27/2024 3:48 PM ASSURANCE OFFICER Plan of Treatment Not on file Medical Devices Implanted Type Area Fuel Pilot Engineer Device Identifier Shelf Expiration Date Model / Serial / Lot [employer] Attune Cruciate Retain Cementless Knee Right 4 Component Femoral [id number] - [id number] Implanted:Qty: 1 on 02/17/2024 by Roosevelt Winchester MD at [facility] Right: Knee [employer] [id number] 12/09/2033 [id number] / / [id number] [employer] Insert Tibial Knee Fixed Rm Posterior Stabilized Attune 8mm Size 4 Polyethylene [id number] - [id number] Implanted:Qty: 1 on 02/17/2024 by Roosevelt Winchester MD at [facility] Right: Knee [employer] [id number] 12/09/2030 [id number] / / [id number] [employer] Attune Fb Tib Base Sz 4 Por [id number] - [id number] Implanted:Qty: 1 on 02/17/2024 by Roosevelt Winchester MD at [facility] Right: Knee [employer] [id number] 01/09/2034 [id number] / / [id number] Procedures Procedure Name Priority Date/Time Associated Diagnosis Comments BREAST IMAGING MG DIAGNOSTIC OUTSIDE CONSULT Routine 06/03/2024 5:23 PM ASSURANCE OFFICER XR KNEE RIGHT 3 VIEWS Schedule Routine, Read Routine (OP Routine) 05/27/2024 3:42 PM ASSURANCE OFFICER Status post total knee replacement, right BREAST IMAGING US OUTSIDE REFERENCE Routine 05/21/2024 9:20 AM ASSURANCE OFFICER BREAST IMAGING MG DIAGNOSTIC OUTSIDE REFERENCE Routine 05/21/2024 9:10 AM ASSURANCE OFFICER BREAST IMAGING MG SCREENING OUTSIDE REFERENCE Routine 05/19/2024 1:10 PM ASSURANCE OFFICER XR KNEE RIGHT 3 VIEWS Schedule Routine, Read Routine (OP Routine) 04/29/2024 2:09 PM ASSURANCE OFFICER Status post total knee replacement, right XR KNEE RIGHT 1 OR 2 VIEWS Schedule Routine, Read Routine (OP Routine) 04/13/2024 3:36 PM ASSURANCE OFFICER Status post total knee replacement, right US VEIN DUPLEX LOWER EXTREMITY RIGHT LIMITED Schedule Routine, Read Routine (OP Routine) 03/30/2024 8:15 AM ASSURANCE OFFICER Status post total knee replacement, right from Last 3 Months Results * Breast Imaging DX Outside Consult (06/03/2024 5:23 PM ASSURANCE OFFICER) Anatomical Region Laterality Modality Breast N/A Mammography 06/04/2024 10:2 6 AM ASSURANCE OFFICER Impressions 06/04/2024 11:52 AM ASSURANCE OFFICER 1. ??Oval 1.3 cm isoechoic mass is noted mammographically in the outer central left breast at posterior depth, with possible correlate noted sonographically at the 5 o'clock position 10 cm from the nipple. Further evaluation with Second Look ultrasound is recommended. 2. ??Oval 0.5 cm isoechoic mass noted nearby the larger mass on mammogram. ??Further evaluation with left breast ultrasound is recommended. 3. ??No mammographic evidence of malignancy within the right breast. OVERALL FINAL ASSESSMENT: BI-RADS Category 0: Incomplete - Need Additional Imaging Evaluation. RECOMMENDATION: Additional imaging - left breast ultrasound evaluation. NOTE: The findings, conclusions and recommendations within this report do not replace the initial findings, conclusions and recommendations made at the facility where the study was performed based upon the imaging and clinical condition at that time. ??Review of the prior report and correlation with the clinical history are necessary. The provided images may or may not represent the kashia source data set and thus may contain changes which may lower the sensitivity of the second opinion interpretation. Dictated by: Swati Kitchen MD The radiology attending physician has personally reviewed this study, and had reviewed and/or edited this written report and agrees with it. Electronically signed by: Dolly Clark M.D. Narrative 06/04/2024 11:52 AM ASSURANCE OFFICER EXAMINATION: REVIEW AND INTERPRETATION OF OUTSIDE IMAGING FACILITY PERFORMING OUTSIDE IMAGING: [facility] EXAM(S) REVIEWED: 1. ??BILATERAL SCREENING MAMMOGRAM WITH TOMOSYNTHESIS, 05/19/2024 2. ??LEFT UNILATERAL DIAGNOSTIC MAMMOGRAM WITH TOMOSYNTHESIS, 05/21/2024 DATE OF INTERPRETATION: 06/04/2024 HISTORY: 44-year-old female presenting for screening call back for focal asymmetry within the left breast. COMPARISON: Outside left breast targeted ultrasound 05/21/2024 BREAST PARENCHYMAL COMPOSITION: The breasts are almost entirely fatty. FINDINGS: BILATERAL SCREENING MAMMOGRAM WITH TOMOSYNTHESIS 05/19/2024: RIGHT breast: There is no suspicious mass, grouped calcifications, architectural distortion noted within the right breast. LEFT breast: There is a focal asymmetry within the upper central left breast at posterior depth. DIAGNOSTIC LEFT MAMMOGRAM WITH TOMOSYNTHESIS 05/21/2024: On spot compression images, there is an oval equal density mass with 2 internal punctate calcifications measuring up to 1.3 cm in the outer central left breast at posterior depth. ??There is an adjacent smaller oval equal density mass slightly inferior and medial to the mass measuring up to 0.5 cm. On outside facility ultrasound at the 5 o'clock position 10 cm from the nipple there is an oval hypoechoic mass noted measuring up to 1.3 cm. Procedure Note Dolly Clark MD - 06/04/2024 EXAMINATION: REVIEW AND INTERPRETATION OF OUTSIDE IMAGING FACILITY PERFORMING OUTSIDE IMAGING: [facility] EXAM(S) REVIEWED: 1. BILATERAL SCREENING MAMMOGRAM WITH TOMOSYNTHESIS, 05/19/2024 2. LEFT UNILATERAL DIAGNOSTIC MAMMOGRAM WITH TOMOSYNTHESIS, 05/21/2024 DATE OF INTERPRETATION: 06/04/2024 HISTORY: 44-year-old female presenting for screening call back for focal asymmetry within the left breast. COMPARISON: Outside left breast targeted ultrasound 05/21/2024 BREAST PARENCHYMAL COMPOSITION: The breasts are almost entirely fatty. FINDINGS: BILATERAL SCREENING MAMMOGRAM WITH TOMOSYNTHESIS 05/19/2024: RIGHT breast: There is no suspicious mass, grouped calcifications, architectural distortion noted within the right breast. LEFT breast: There is a focal asymmetry within the upper central left breast at posterior depth. DIAGNOSTIC LEFT MAMMOGRAM WITH TOMOSYNTHESIS 05/21/2024: On spot compression images, there is an oval equal density mass with 2 internal punctate calcifications measuring up to 1.3 cm in the outer central left breast at posterior depth. There is an adjacent smaller oval equal density mass slightly inferior and medial to the mass measuring up to 0.5 cm. On outside facility ultrasound at the 5 o'clock position 10 cm from the nipple there is an oval hypoechoic mass noted measuring up to 1.3 cm. IMPRESSION: 1. Oval 1.3 cm isoechoic mass is noted mammographically in the outer central left breast at posterior depth, with possible correlate noted sonographically at the 5 o'clock position 10 cm from the nipple. Further evaluation with Second Look ultrasound is recommended. 2. Oval 0.5 cm isoechoic mass noted nearby the larger mass on mammogram. Further evaluation with left breast ultrasound is recommended. 3. No mammographic evidence of malignancy within the right breast. OVERALL FINAL ASSESSMENT: BI-RADS Category 0: Incomplete - Need Additional Imaging Evaluation. RECOMMENDATION: Additional imaging - left breast ultrasound evaluation. NOTE: The findings, conclusions and recommendations within this report do not replace the initial findings, conclusions and recommendations made at the facility where the study was performed based upon the imaging and clinical condition at that time. Review of the prior report and correlation with the clinical history are necessary. The provided images may or may not represent the kashia source data set and thus may contain changes which may lower the sensitivity of the second opinion interpretation. Dictated by: Swati Kitchen MD The radiology attending physician has personally reviewed this study, and had reviewed and/or edited this written report and agrees with it. Electronically signed by: Dolly Clark M.D. us Annamarie Harper PUBLIC WORKS MANAGER IMG MAMMO PROCEDURES Fi nal Result * XR Knee Right 3 Views (05/27/2024 3:42 PM ASSURANCE OFFICER) Anatomical Region Laterality Modality Lower Extremities, Knee Right Digital Radiography Narrative 05/27/2024 4:00 PM ASSURANCE OFFICER X-rays of the right knee are reviewed and interpreted and demonstrate no acute fractures subluxations or osseous changes. ??Status post TKA changes noted with implants in acceptable position. us Jeff Browne PUBLIC WORKS MANAGER IMG XR PROCEDURES Final Result * Breast Imaging US Outside Reference (05/21/2024 9:20 AM ASSURANCE OFFICER) Narrative RAD_PACS_CH - 06/03/2024 12:02 PM ASSURANCE OFFICER This order has been auto-finalized and does not contain a result. us Provider Transcribed Order IMG MAMMO PROCEDURES Final Result Performing Organization Address [facility] de Phone Number [email or web address]_CH * Breast Imaging Diagnostic Outside Reference (05/21/2024 9:10 AM ASSURANCE OFFICER) Narrative RAD_PACS_CH - 06/03/2024 12:02 PM ASSURANCE OFFICER This order has been auto-finalized and does not contain a result. us Provider Transcribed Order IMG MAMMO PROCEDURES Final Result Performing Organization Address [facility] de Phone Number [email or web address] * Breast Imaging Screening Outside Reference (05/19/2024 1:10 PM ASSURANCE OFFICER) Narrative RAD_PACS_CH - 06/03/2024 12:02 PM ASSURANCE OFFICER This order has been auto-finalized and does not contain a result. us Provider Transcribed Order IMG MAMMO PROCEDURES Final Result Performing Organization Address [facility] de Phone Number [email or web address] * XR Knee Right 3 Views (04/29/2024 2:09 PM ASSURANCE OFFICER) Anatomical Region Laterality Modality Lower Extremities, Knee Right Digital Radiography Narrative 04/29/2024 2:09 PM ASSURANCE OFFICER X-rays of the right knee are reviewed and interpreted and demonstrate no acute fractures subluxations or osseous changes. ??Status post TKA changes noted with implants in acceptable position. us Jeff Browne NP IMG XR PROCEDURES Final Result * XR Knee Right 1 or 2 Views (04/13/2024 3:36 PM ASSURANCE OFFICER) Anatomical Region Laterality Modality Lower Extremities, Knee Right Digital Radiography Narrative 04/13/2024 4:02 PM ASSURANCE OFFICER X-rays of the right knee are reviewed and interpreted and demonstrate no acute fractures subluxations or osseous changes. ??Status post TKA changes noted with implants in acceptable position. us Jeff Browne NP IMG XR PROCEDURES Final Result * US VEIN DUPLEX LOWER EXTREMITY RIGHT LIMITED, UNILATERAL (03/30/2024 8:15 AM ASSURANCE OFFICER) Anatomical Region Laterality Modality Vascular Right Ultrasound 03/30/2024 8:23 AM ASSURANCE OFFICER Narrative 03/30/2024 8:24 AM ASSURANCE OFFICER EXAM DESCRIPTION: ?? US VEIN DUPLEX LOWER EXTREMITY RIGHT LIMITED, UNILATERAL REASON FOR STUDY: Right knee pain TECHNIQUE: Duplex scan using the B-mode, spectral Doppler, and color-flow Doppler of the deep venous system of the ??right ??lower extremity was performed. Images stored on PACS. COMPARISON: 02/17/2024 knee radiographs FINDINGS: The common femoral, common femoral-saphenous vein confluence, visualized profunda femoral, superficial femoral, and popliteal veins are readily compressible with no intraluminal thrombus on florentino scale images. ??There is normal color and spectral Doppler signal, including augmentation. ??Greater saphenous vein appears patent. Visualized calf veins are patent. IMPRESSION: ??No right lower extremity deep venous thrombosis. THIS IS AN ELECTRONICALLY VERIFIED FINAL REPORT 03/30/2024 8:24 AM - Electronically signed by ??Samir Ross M.D. MM: MM D: ??03/30/2024 8:24 AM T: ??03/30/2024 8:24 AM Report ID: [id number] Reading Location: ??[id number] Procedure Note Samir Ross MD - 03/30/2024 EXAM DESCRIPTION: US VEIN DUPLEX LOWER EXTREMITY RIGHT LIMITED,UNILATERAL REASON FOR STUDY: Right knee pain TECHNIQUE: Duplex scan using the B-mode, spectral Doppler, and color-flow Doppler of the deep venous system of the right lower extremity was performed. Images stored on PACS. COMPARISON: 02/17/2024 knee radiographs FINDINGS: The common femoral, common femoral-saphenous vein confluence, visualized profunda femoral, superficial femoral, and popliteal veins are readily compressible with no intraluminal thrombus on florentino scale images. There is normal color and spectral Doppler signal, including augmentation. Greater saphenous vein appears patent. Visualized calf veins are patent. IMPRESSION: No right lower extremity deep venous thrombosis. THIS IS AN ELECTRONICALLY VERIFIED FINAL REPORT 03/30/2024 8:24 AM - Electronically signed by Samir Ross M.D. MM: MM Report ID: [id number] Reading Location: [id number] us Piotr PAINTING IMG US PROCEDURES Final Res ult from Last 3 Months Insurance [facility] CHOICE PLUS [facility] CHOICE PLUS Advance Directives For more information, please contact: [phone] * Full Code (Latest Code Status on File) Date Activated Date Inactivated Comments 02/17/2024 10:44 AM 02/17/2024 8:06 PM Care Teams Facility Maintenance Mechanic Relationship Specialty Start Date End Date Yehuda Hearn MD PCP - General 04/24/20 Yehuda Hearn MD Internal Medicine 04/24/20 Jeff Browne NP [address] [place] [address] [place] [address] Nurse Practitioner Orthopedic Surgery 02/17/24
--- OUTSIDE RECORDS SUMMARY | 2024-06-13 13:59 | XMS_ITS | Clinical Summary ---
Author Organization [facility] Address [address] [place] [address] Care Team Providers Care Tobacco Dipper Name Role Phone Yehuda Hearn MD Primary Care Provider [phone] Yehuda Hearn MD Unavailable [phone] Jeff Browne NP Unavailable [phone] Allergies Active Allergy Reactions Criticality Noted Date [...] in female 12/24/2013 Bladder pain 12/24/2013 09/23/2022 Encounters Date Type Department Care Team Description 06/04/2024 Telephone [facility] Surgery [facility] Floor 5 [place] [address] Annamarie Harper NP Medical Question/Miscellane ous 06/03/2024 5:23 PM CONSTRUCTION ENGINEERING MANAGER - 06/03/2024 11:59 PM CONSTRUCTION ENGINEERING MANAGER Hospital Encounter [facility] [address] [place] [address] [phone] Discharge Disposition: Discharge to home or self care 06/01/2024 Orders Only [facility] [address] [place] [address] Annamarie Harper NP 05/28/2024 Orders Only [facility] Surgery [address] [place] [address] 8 [place] [address] Jocelyn Mandel RN Abnormal mammogram (Primary Dx); Mass of lower outer quadrant of left breast 05/27/2024 3:45 PM CONSTRUCTION ENGINEERING MANAGER Office Visit [facility] [address] [place] [address] Jeff Browne NP Status post total knee replacement, right (Primary Dx); Sprain of medial collateral ligament of right knee, subsequent encounter 05/27/2024 7:46 AM CONSTRUCTION ENGINEERING MANAGER - 05/27/2024 11:59 PM CONSTRUCTION ENGINEERING MANAGER Hospital Encounter [facility] [address] [place] [address] [address] [place] [address] Discharge Disposition: Discharge to home or self care 05/21/2024 9:20 AM CONSTRUCTION ENGINEERING MANAGER Ancillary Procedure [facility] 05/21/2024 9:10 AM CONSTRUCTION ENGINEERING MANAGER Ancillary Procedure [facility] 05/19/2024 1:10 PM CONSTRUCTION ENGINEERING MANAGER Ancillary Procedure [facility] 04/29/2024 2:00 PM CONSTRUCTION ENGINEERING MANAGER Office Visit [facility] [address] [place] [address] [address] [place] [address] Jeff Browne NP Status post total knee replacement, right (Primary Dx); Sprain of medial collateral ligament of right knee, initial encounter 04/29/2024 7:45 AM CONSTRUCTION ENGINEERING MANAGER - 04/29/2024 11:59 PM CONSTRUCTION ENGINEERING MANAGER Hospital Encounter [facility] [address] [place] [address] [address], [place] [address] Discharge Disposition: Discharge to home or self care 04/13/2024 3:45 PM CONSTRUCTION ENGINEERING MANAGER Office Visit [facility] [address] [place] [address] [address], [place] [address] Jeff Browne NP Status post total knee replacement, right (Primary Dx) 04/13/2024 7:56 AM CONSTRUCTION ENGINEERING MANAGER - 04/13/2024 11:59 PM CONSTRUCTION ENGINEERING MANAGER Hospital Encounter [facility] [address] [place] [address] [address], [place] [address] Discharge Disposition: Discharge to home or self care 03/30/2024 11:00 AM CONSTRUCTION ENGINEERING MANAGER Office Visit [facility] [address] [place] [address] [address], [place] [address] Valarie Marcelo, UMA Status post total knee replacement, right (Primary Dx) 03/30/2024 7:11 AM CONSTRUCTION ENGINEERING MANAGER - 03/30/2024 11:59 PM CONSTRUCTION ENGINEERING MANAGER Hospital Encounter [facility] [address] [place] [address] Status post total knee replacement, right Discharge Disposition: Discharge to home or self care 03/29/2024 Orders Only [facility] [address] [facility] [address] [place] [address] Piotr Hallman PA Status post total knee replacement, right (Primary Dx) 03/29/2024 Orders Only [facility] [address] [facility] [address] [place] [address] Piotr Hallman PA Status post total knee replacement, right (Primary Dx) 03/29/2024 Telephone [facility] [address] [place] [phone] Piotr Hallman PA 03/19/2024 Telephone [facility] [address] [facility] [address] [place] [address] Roosevelt Winchester MD from Last 3 Months Surgical History Surgery Date Site/Laterality Comments TONSILLECTOMY TYMPANOSTOMY TUBE PLACEMENT COLONOSCOPY LAPAROSCOPY HYSTERECTOMY KNEE SURGERY Right meniscal repair Medical History Medical History Date Comments Kidney stone Endometriosis Migraines PONV (postoperative nausea and vomiting) Family History Medical History Relation Name Comments Arthritis Other Cancer Other Diabetes Other Relation Name Status Comments Other Social History Tobacco Use Types Packs/Day Years [...] on file Legal Sex Female 4:57 AM CONSTRUCTION ENGINEERING MANAGER Gender Identity Female 02/05/2024 9:37 AM CDT Sexual Orientation Straight 12/24/2022 10 :40 AM CDT Obstetrics History Last Filed Vital Signs Vital Sign Reading Time Taken Comments Blood Pressure 128/70 05/27/2024 3:48 PM CONSTRUCTION ENGINEERING MANAGER Pulse 76 05/27/2024 3:48 PM CONSTRUCTION ENGINEERING MANAGER Temperature 36.4 ??C (97.6 ??F) 02/17/2024 3:58 PM CD T Respiratory Rate 16 02/17/2024 3:58 PM CDT Oxygen Saturation 99% 02/17/2024 3:58 PM CDT Inhaled Oxygen Concentration - - Weight 108.9 kg (240 lb) 05/27/2024 3:48 PM CONSTRUCTION ENGINEERING MANAGER Height 170.2 cm (5' 7 ) 05/27/2024 3:48 PM CONSTRUCTION ENGINEERING MANAGER Body Mass Index 37.59 05/27/2024 3:48 PM CONSTRUCTION ENGINEERING MANAGER Plan of Treatment Health Maintenance Due Date Last Done Comments Breast Cancer Screening-Mammogram 1980 Hepatitis C Screening 1980 DTaP/Tdap/Td Vaccine (1 - Tdap) 1991 Varicella Vaccines (1 of 2 - 13+ 2-dose series) 1993 Hepatitis B Screening 1998 Regular Well Visit/Exam 18-64 1998 Influenza Vaccine (#1) 2024 Depression Screening 06/12/2024 06/12/2023, 06/12/2023 HPV Vaccines Aged Out No longer eligi ble based on patient's age to complete this topic Pneumococcal vaccine <65 Aged Out No longer eligible based on patient's age to complete this topic Medical Devices Implanted Type Area [employer] Device Identifier Shelf Expiration Date Model / Serial / Lot [employer] Attune Cruciate Retain Cementless Knee Right 4 Component Femoral [id number] - [id number] Implanted:Qty: 1 on 02/17/2024 by Roosevelt Winchester MD at [facility] Right: Knee [employer] [id number] 12/09/2033 [id number] / / [id number] [employer] Insert Tibial Knee Fixed Rm Posterior Stabilized Attune 8mm Size 4 Polyethylene [id number] - [id number] Implanted:Qty: 1 on 02/17/2024 by Roosevelt Winchester MD at [facility] Right: Knee [employer] [id number] 12/09/2030 [id number] / / [id number] [employer] Attune Fb Tib Base Sz 4 Por [id number] - [id number] Implanted:Qty: 1 on 02/17/2024 by Roosevelt Winchester MD at [facility] Right: Knee [employer] [id number] 01/09/2034 [id number] / / [id number] Procedures Procedure Name Priority Date/Time Associated Diagnosis Comments BREAST IMAGING MG DIAGNOSTIC OUTSIDE CONSULT Routine 06/03/2024 5:23 PM CONSTRUCTION ENGINEERING MANAGER XR KNEE RIGHT 3 VIEWS Schedule Routine, Read Routine (OP Routine) 05/27/2024 3:42 PM CONSTRUCTION ENGINEERING MANAGER Status post total knee replacement, right BREAST IMAGING US OUTSIDE REFERENCE Routine 05/21/2024 9:20 AM CONSTRUCTION ENGINEERING MANAGER BREAST IMAGING MG DIAGNOSTIC OUTSIDE REFERENCE Routine 05/21/2024 9:10 AM CONSTRUCTION ENGINEERING MANAGER BREAST IMAGING MG SCREENING OUTSIDE REFERENCE Routine 05/19/2024 1:10 PM CONSTRUCTION ENGINEERING MANAGER XR KNEE RIGHT 3 VIEWS Schedule Routine, Read Routine (OP Routine) 04/29/2024 2:09 PM CONSTRUCTION ENGINEERING MANAGER Status post total knee replacement, right XR KNEE RIGHT 1 OR 2 VIEWS Schedule Routine, Read Routine (OP Routine) 04/13/2024 3:36 PM CONSTRUCTION ENGINEERING MANAGER Status post total knee replacement, right US VEIN DUPLEX LOWER EXTREMITY RIGHT LIMITED Schedule Routine, Read Routine (OP Routine) 03/30/2024 8:15 AM CONSTRUCTION ENGINEERING MANAGER Status post total knee replacement, right from Last 3 Months Results * Breast Imaging DX Outside Consult (06/03/2024 5:23 PM CONSTRUCTION ENGINEERING MANAGER) Anatomical Region Laterality Modality Breast N/A Mammography 06/04/2024 10:2 6 AM CONSTRUCTION ENGINEERING MANAGER Impressions 06/04/2024 11:52 AM CONSTRUCTION ENGINEERING MANAGER 1. ??Oval 1.3 cm isoechoic mass is [...] images may or may not represent the apache source data set and thus may contain changes which may lower the sensitivity of the second opinion interpretation. Dictated by: Swati Kitchen MD The radiology attending physician has personally reviewed this study, and had reviewed and/or edited this written report and agrees with it. Electronically signed by: Dolly Clark M.D. Narrative 06/04/2024 11:52 AM CONSTRUCTION ENGINEERING MANAGER EXAMINATION: REVIEW AND INTERPRETATION OF OUTSIDE IMAGING FACILITY PERFORMING OUTSIDE IMAGING: [facility] EXAM(S) REVIEWED: 1. ??BILATERAL SCREENING MAMMOGRAM WITH [...] OF OUTSIDE IMAGING FACILITY PERFORMING OUTSIDE IMAGING: [facility] EXAM(S) REVIEWED: 1. BILATERAL SCREENING MAMMOGRAM WITH [...] images may or may not represent the apache source data set and thus may contain changes which may lower the sensitivity of the second opinion interpretation. Dictated by: wSati Kitchen MD The radiology attending physician has personally reviewed this study, and had reviewed and/or edited this written report and agrees with it. Electronically signed by: Dolly Clark M.D. us Annamarie Harper APPLIANCES SAMPLE MAKER IMG MAMMO PROCEDURES Fi nal Result * XR Knee Right 3 Views (05/27/2024 3:42 PM CONSTRUCTION ENGINEERING MANAGER) Anatomical Region Laterality Modality Lower Extremities, Knee Right Digital Radiography Narrative 05/27/2024 4:00 PM CONSTRUCTION ENGINEERING MANAGER X-rays of the right knee are reviewed and interpreted and demonstrate no acute fractures subluxations or osseous changes. ??Status post TKA changes noted with implants in acceptable position. us Jeff Browne NP IMG XR PROCEDURES Final Result * Breast Imaging US Outside Reference (05/21/2024 9:20 AM CONSTRUCTION ENGINEERING MANAGER) Narrative [facility] - 06/03/2024 12:02 PM CONSTRUCTION ENGINEERING MANAGER This order has been auto-finalized and does not contain a result. us Provider Transcribed Order IMG MAMMO PROCEDURES Final Result [facility] * Breast Imaging Diagnostic Outside Reference (05/21/2024 9:10 AM CONSTRUCTION ENGINEERING MANAGER) Narrative [facility] - 06/03/2024 12:02 PM CONSTRUCTION ENGINEERING MANAGER This order has been auto-finalized and does not contain a result. us Provider Transcribed Order IMG MAMMO PROCEDURES Final Result Performing Organization Address [facility] de Phone Number [facility] * Breast Imaging Screening Outside Reference (05/19/2024 1:10 PM CONSTRUCTION ENGINEERING MANAGER) Narrative [facility] - 06/03/2024 12:02 PM CONSTRUCTION ENGINEERING MANAGER This order has been auto-finalized and does not contain a result. us Provider Transcribed Order IMG MAMMO PROCEDURES Final Result Performing Organization Address [facility] Phone Number [facility] * XR Knee Right 3 Views (04/29/2024 2:09 PM CONSTRUCTION ENGINEERING MANAGER) Anatomical Region Laterality Modality Lower Extremities, Knee Right Digital Radiography Narrative 04/29/2024 2:09 PM CONSTRUCTION ENGINEERING MANAGER X-rays of the right knee are reviewed and interpreted and demonstrate no acute fractures subluxations or osseous changes. ??Status post TKA changes noted with implants in acceptable position. us Jeff Browne NP IMG XR PROCEDURES Final Result * XR Knee Right 1 or 2 Views (04/13/2024 3:36 PM CONSTRUCTION ENGINEERING MANAGER) Anatomical Region Laterality Modality Lower Extremities, Knee Right Digital Radiography Narrative 04/13/2024 4:02 PM CONSTRUCTION ENGINEERING MANAGER X-rays of the right knee are reviewed and interpreted and demonstrate no acute fractures subluxations or osseous changes. ??Status post TKA changes noted with implants in acceptable position. us Jeff Browne NP IMG XR PROCEDURES Final Result * US VEIN DUPLEX LOWER EXTREMITY RIGHT LIMITED, UNILATERAL (03/30/2024 8:15 AM CONSTRUCTION ENGINEERING MANAGER) Anatomical Region Laterality Modality Vascular Right Ultrasound 03/30/2024 8:23 AM CONSTRUCTION ENGINEERING MANAGER Narrative 03/30/2024 8:24 AM CONSTRUCTION ENGINEERING MANAGER EXAM DESCRIPTION: ?? US VEIN DUPLEX LOWER [...] AM T: ??03/30/2024 8:24 AM Report ID: [id number] Reading Location: ??[id number] Procedure Note Samir [place] MD - 03/30/2024 [...] Samir [place] M.D. MM: MM Report ID: [id number] Reading Location: [id number] Piotr [facility] PROCEDURES Final Res ult from Last 3 Months Insurance [facility] CHOICE PLUS [facility] CHOICE PLUS Advance Directives For more information, please contact: [phone] * Full Code (Latest Code Status on File) Date Activated Date Inactivated Comments 02/17/2024 10:44 AM 02/17/2024 8:06 PM Care Teams Tobacco Dipper Relationship Specialty Start Date End Date Yehuda Hearn MD PCP - General 04/24/20 Yehuda Hearn MD Internal Medicine 04/24/20 Jeff Browne NP [address] [place] [address] DR DANIELSON [address] [place] [id number] Nurse Practitioner Orthopedic Surgery 02/17/24
--- OUTSIDE RECORDS SUMMARY | 2024-06-13 13:59 | XMS_ITS | Data Portability ---
Author Organization [place] [facility], Main Office Address [address] [place] [address] Care Team Providers Care Development Director Name Role Phone CRISELDA AUGUST Primary Care Provider CRISELDA AUGUST Referring Provider Assessment Encounter Date Assessment Date Assessment LastModified by Organization Details LastModified Time 07/24/2022 07/24/2022 42-year-old yadira govea presents for follow-up status post right knee arthroscopy and medial meniscus root repair on 07/16/2022. Overall she is doing well. She has been compliant with restricted weight-bearing and still using crutches with the knee in a hinged knee brace in full extension. Her pain is controlled. Incisions well healed. She still does have some swelling in the knee. No pain with gentle range of motion. we gave her an order for physical therapy, following the postoperative recovery protocol for meniscal root repair. We will begin unlocking the brace in another week to 90? ? ?. She will continue to protect her weight-bearing using crutches and the brace for about 6 weeks total. We will see her back in 2 weeks. In the meantime, we will give her a work note that she should be off until her next visit when we will re-evaluate. Not available 07/24/2022 18:18:19 08/07/2022 08/07/2022 42-year-old yadira govea presents for follow-up status post right knee arthroscopy and medial meniscus root repair on 07/16/2022. Overall she is doing well. She has been compliant with restricted weight-bearing and still using crutches with the knee in a hinged knee brace in full extension. Her pain is controlled but she is requesting a prescription for anti-inflammatorie s. She has had 3 visits to physical therapy and states that it is going well. Incisions well healed. She still does have some swelling in the knee. No pain with gentle range of motion. We will unlock the brace to 90? ? ?. She will continue to protect her weight-bearing using crutches and the brace for about [address] place an order for mobic. We will see her back in 2-3 weeks. In the meantime, we will give her a work note that she should be off until her next visit when we will re-evaluate. [email or web address] Not available 08/07/2022 11:53:58 08/28/2022 08/28/2022 42-year-old femkaty govea presenting for follow-up status post right knee meniscal root repair on 07/16/2022. Overall she is doing well, reports symptoms are improving. She rates her pain as 1/10. She is still doing PT. she has remained nonweightbearing in the knee brace. Incisions are well healed. She has no tenderness palpation of medial joint line. Range of motion 0-120. She has good quad activation. She should continue to do physical therapy. We will unlock the brace, and we will begin progressing with weight-bearing, increasing by 25% each week until full. We will give her a work note for light duty/ desk work only. She inquired about driving, and advised her that of there is no official recommendation guidelines, she needs to be off narcotic pain medications and have the confidence to operate the pedals effectively. Given that she is not full weight-bearing yet, I have recommended against driving. Follow up in 4 weeks for repeat evaluation. At that point, anticipate she will be full weight-bearing and can wean out of the brace. Not available 08/28/2022 16:32:37 09/25/2022 09/25/2022 42 year old femkaty govea presents for follow up of her right knee, status post meniscal root repair 07/16/22. Overall doing better, minimal pain rated 1/10. She has a few more PT sessions left. She has been compliant with brace wear. Incisions well healed. ROM 0-135. No pain with ROM. Progressin well postop. At this point we will remove the brace. She may be weight bearing as tolerated, activities as tolerated gradually progressing. Follow up in 6-8 weeks or sooner as needed. Not available 10/01/2022 01:20:53 11/06/2022 11/06/2022 42-year-old fema xuan presents for follow-up of her right knee, status post arthroscopy with medial meniscus root repair on 07/16/2022. Overall she had been doing well postoperatively up until couple weeks ago, when she tweaked her knee again and had recurrence of pain as well as some mechanical symptoms. She had been doing therapy exercises on her own at home. She had not been taking any medications. Pain is located over the medial joint line. Incisions are well healed without erythema drainage or other signs of infection. Range of motion 0-130. 1+ effusion. She does have tenderness over the medial joint line. Positive Lizbeth's. It appears that she re-injured, or even retorn her meniscus. We will have her take it easy with exercises for a while until this calms down, then gradually return to progression with activity. She should take anti-inflammatorie s as needed, and avoid high impact activities. We will see her back in 4-6 weeks for recheck. Not available 11/06/2022 15:49:40 Plan of Treatment Reminders Order Date Submit Date Provider Last Modified By Organization Details Last Modified Time Details Appointments None recorded. Lab None recorded. Referral physical therapist referral - Please schedule pt for R knee post op. Thanks [address] [facility], [address] [place] [address], [id number], 3 15:01:26 physical therapist referral - continue PT 2022 023 dz7 [facility], [address] [place] [address], [id number], 15:25:11 Procedures None recorded. Surgeries None recorded. Imaging None recorded. Medication Orders Mobic 15 mg tablet 2022 023 [facility], [facility] [address], [address], [place], [address], 12:13:48 Patient TargetsNo targets recorded. Patient InstructionsNo instructions recorded. Reason for Referral Physical Therapist Referral for Tear of medial meniscus of knee R knee post op Please schedule pt for R knee post op. Thanks Referring Physician: Ajay Pickett, Orthopedic Surgery, Encounter Date: 07/24/2022 Physical Therapist Referral for Tear of medial meniscus of knee continue PT Referring Physician: Ajay Pickett, Orthopedic Surgery, Encounter Date: 08/28/2022 Results Created Date Observation Date Name Description Value Unit Range Abnormal Flag Note LastModifiedBy Organization Detail LastModifiedTime 07/02/19 XR, knee No observ ation record ed. [id number] Not Available 07/10/2022 10:41:26 Result Notes None recorded. Problems Name Problem SNOMED Code Status Onset Date Resolution Date Notes Provider Name and Address Organization Details Recorded Time Tear of medial meniscus of knee 428842858 Active 2022 Not Available [facility] 3 10:40:27 Pain of right knee joint 89706319537093 0 Active 2022 Not Available [facility] 3 10:40:27 Problem Notes None recorded. Procedures Surgical History Date Name Laterality Status Provider Name and Address Organization Details Recorded Time laparoscopy completed Not Available [facility] 07/10/2022 10:39:54 colonoscopy completed Not Available [facility] 07/10/2022 10:39:54 Hysterectomy completed Not Available [facility] 07/10/2022 10:39:54 Imaging Results Imaging Date Name Status LastModified by Organiz ation Details LastModified Time 07/02/2022 XR, knee completed [id number] Information not available 07/10/2022 10:41:26 Procedure Notes None recorded. Medical Equipment None Reported. Medications Name Sig Start Date Stop Date Status Note LastModified by Organization Details LastModified Time hydrocodone 5 mg-acetaminop hen 325 mg tablet Take 1 tablet every 6 hours by oral route. active Not Available Not Available No t Available meloxicam 15 mg tablet 1 tab daily 2022 active Not Available Not Available Not Avai lable prednisone 20 mg tablet 06/28 completed Not Available Not Available Not Available rizatriptan 10 mg tablet active Not Available Not Available Not Available cephalexin 500 mg capsule 06/28 completed Not Available Not Available Not Available ondansetron 4 mg disintegratin g tablet active Not Available Not Available Not Available Aimovig Autoinjector 140 mg/mL subcutaneous auto-injector active Not Available Not Availabl e Not Available Vitals Date Recorded Body height Body mass index (BMI) Body weight Provider Name and Address Organization Details Last Updated DateTime 07/24/2022 165.1 cm 39.3 kg/m2 781496.8 g Sangeetha Gallegos MA [employer] [facility] [employer] 07/24/2022 10:01:18 Date Recorded Body height Body mass index (BMI) Body weight Provider Name and Address Organization Details Last Updated DateTime 08/07/2022 167.64 cm 38.1 kg/m2 959908.8 g Megan Gerard [facility] [employer] [facility] [employer] [facility] 08/07/2022 10:51:47 Date Recorded Body height Body mass index (BMI) Body weight Provider Name and Address Organization Details Last Updated DateTime 08/28/2022 167.64 cm 38.7 kg/m2 298428.17 g Megan Moustapha, [facility] [email or web address] [facility] [email or web address] [facility] 08/28/2022 10:58:45 Date Recorded Body height Body mass index (BMI) Body weight Provider Name and Address Organization Details Last Updated DateTime 09/25/2022 167.64 cm 38.7 kg/m2 924313.17 g Megan Moustapha [facility] [employer] [facility] [employer] [facility] 09/25/2022 08:52:42 Date Recorded Body height Body mass index (BMI) Body weight Pain severity - 0-10 verbal numeric rating [Score] - Reported Provider Name and Address Organization Details Last Updated DateTime 11/06/2022 167.64 cm 38.7 kg/m2 262348.17 g Eddie Treadwell Katy MA [employer] [facility] [employer] [facility] 11/06/2022 09:08:45 Social History Question Answer Notes LastModified by Organizat ion Details LastModified Time Tobacco Smoking Status Never Smoker Not Available [facility] 07/10/2022 10:39:42 What Is Your Level Of Alcohol Consumption? Occasional [id number] Information not available 07/10/2022 Sex: Unknown Functional Status None recorded. Mental Status None recorded. Family History Relationship Description Onset Age of this Age Resolved Age Notes LastModified by Organization Details LastModified Time Mother Family history of malignant neoplasm [id number] Not available 07/10/2022 10:39:58 Mother Diabetes mellitus [id number] Not available 07/10/2022 10:39:58 Medical History Condition Response BLINDNESS N KIDNEY STONES N MRSA N CARPAL TUNNEL SYNDROME N LUNG DISEASE/DISORDER N HISTORY OF DRUG ABUSE N COPD N RADIATION / CHEMOTHERAPY N SPORTS INJURY N ANKLE PAIN N BLOOD DISEASES N SCHIZOPHRENIA N SHINGLES N SHOULDER PAIN N DEPRESSION (INCLUDING POST ) N BOWEL PROBLEMS N STROKE/TIA N KNEE PAIN N ULCERS N BENIGN PROSTATIC HYPERPLASIA N OBESITY N GERD/NAUSEA N ANEURYSM N URINARY/BLADDER/KIDNEY PROBLEMS N CORONARY ARTERY DISEASE (CAD) N ADDICTION CONCERNS N USE OF BLOOD THINNERS N SKIN PROBLEMS N EMPHYSEMA N MUSCLE,JOINT OR BONE PROBLEMS N DVT N STOMACH ULCERS N BLOOD CLOTS N USE OF NSAIDS N CONCUSSION OR SPINAL TRAUMA N NEUROPATHY N AIDS/HIV N FRACTURES N HYPERTENSION N ELBOW PAIN N TOURETTE'S N Metal allergy N ANXIETY DISORDER N BLOOD TRANSFUSION N ANEMIA/BLOOD DISORDER N BIPOLAR DISORDER N BRONCHITIS N OSTEOARTHRITIS N TUBERCULOSIS N FOOT PROBLEM N HEART VALVE DISORDERS N ALLERGIES/HAYFEVER N SOFT TISSUE INJURY N INFECTIOUS DISEASE N HEART ARRHYTHMIA N INSOMNIA N HIGH CHOLESTEROL / HYPERLIPIDEMIA N RHEUMATOID ARTHRITIS N EDEMA N CHRONIC PAIN SYNDROME N CAROTID BLOCKAGE N BACK / NECK PROBLEMS N HAVE YOU BEEN HOSPITALIZED OR SEEN IN [facility] ER IN THE PAST YEAR ? N BURSITIS N HERNIATED DISC N DIALYSIS N FIBROMYALGIA N OSTEOPOROSIS N ARTHRITIS N NO SIGNIFICANT PAST MEDICAL HISTORY N PERIPHERAL NEUROPATHY N DIABETES, TYPE N HEARTBURN / REFLUX N HEPATITIS / LIVER DISEASE N GOUT N ALZHEIMER'S DISEASE N SLEEP DISORDER N HERPES N HEADACHES/MIGRAINES N SEIZURES/EPILEPSY N VASCULAR DISEASE N Blood Disorder N HIP PAIN N DIZZINESS N HEAD TRAUMA OR INJURY N HEART DISEASE/HEART PROBLEMS N MULTIPLE SCLEROSIS N CANCER: SPECIFY N CARDIAC ARRHYTHMIA N ANESTHESIA COMPLICATIONS N ATRIAL FIBRILLATION N AUTOIMMUNE DISEASE N Gynecological HistoryNo gynecological history recorded. Obstetrics History GPAL:G 0 P 0 0 0 0 Past Encounters Encounter ID Performer Location Encounter Start Date Encounter Closed Date Diagnosis/Indication Diagnosis SNOMED-CT Code Diagnosis ICD10 Code Diagnosis Note [id number] [facility] [address] [place] [address] 06/28/2022 00:00:00 06/28/2022 10:41:39 [id number] [facility] [address] [place] [address] 06/28/2022 00:00:00 06/28/2022 13:39:21 [id number] Ajay Pickett MD [facility] [address] [place] [address] 07/24/2022 09:54:42 07/24/2022 10:35:22 Tear of medial meniscus of knee 373175034 S83.241A [id number] Maranda Sood NP [facility] [address] [place] [address] 08/07/2022 10:48:13 08/07/2022 11:42:40 Tear of medial meniscus of knee 735742473 S83.241A Pain of ri ght knee joint 3096042686 06617 M25.561 [id number] Ajay Pickett MD [facility] [address] [place] [address] 08/28/2022 10:55:30 08/28/2022 11:21:57 Tear of medial meniscus of knee 069573489 S83.241A Pain of ri ght knee joint 5402789281 62020 M25.561 [id number] Ajay Pickett MD [facility] [address] [place] [address] 09/25/2022 08:50:27 09/25/2022 09:05:43 Tear of medial meniscus of knee 191600100 S83.241A Pain of ri ght knee joint 6544212433 63653 M25.561 [id number] Ajay Pickett MD [facility] [address] [place] [address] 11/06/2022 09:04:38 11/06/2022 09:40:36 Pain of right knee joint 3409230407 51374 M25.561 Health Concerns Section Related Observation LastModified by Organization Detai ls LastModified Time None Recorded Concern Status LastModified by Organization Details LastModified Time None Recorded Advance Directives Directive None Recorded Payers Encounter Date Sequence Insurance Name Policy Number Policy Candelaria Covered Member ID Candelaria Member ID Guarantor Name 07/24/2022 1 [facility] [id number] Jackie Teddy [id number] Jackie Teddy 08/07/2022 1 [facility] [id number] Jackie Teddy [id number] Jackie Teddy 08/28/2022 1 [facility] [id number] Jackie Teddy [id number] Jackie Teddy 09/25/2022 1 [facility] [id number] Jackie Teddy [id number] Jackie Teddy 11/06/2022 1 [facility] [id number] Munger Teddy [id number] Jackie Teddy OBGyn Episode No OBEpisode recorded.
--- OUTSIDE RECORDS SUMMARY | 2024-06-13 13:59 | XMS_ITS | Encounter Summary ---
Author Organization [employer] Address [address] [place] [address] Care Team Providers Care Spice Cleaner Name Role Phone Duke Castillo MD Primary Care Provider Encounter Details Date Type Department Care Team (Latest Contact Info) Description 08/22/1999 Outpatient Historical [facility],[place] [address] [place] [address] Laboratory examination (Primary Dx) Social History Tobacco Use Types Packs/Day Years Used Date Smoking Tobacco: Never Assessed Comments Unknown Sex and Gender Information Value Date Recorded Sex Assigned at Not on file Legal Sex Female 5:20 AM DIRECTOR SERVICE Gender Identity Not on file Sexual Orientation Not on file documented as of this encounter Plan of Treatment Not on file documented as of this encounter Visit Diagnoses Diagnosis Laboratory examination- Primary documented in this encounter Care Teams Spice Cleaner Relationship Specialty [place] [address] [place] [address] PCP - General 01/08/00 documented as of this encounter
--- OUTSIDE RECORDS SUMMARY | 2024-06-13 13:59 | XMS_ITS | Encounter Summary ---
Author Organization [facility] Address [address] [place] [address] Care Team Providers Care Uppers Edge Burnisher Name Role Phone Duke Castillo MD Primary Care Provider Encounter Details Date Type Department Care Team (Late st Contact Info) Description 01/08/2000 Outpatient Historical [facility] Andriy Pierson, [address] [facility] [address] [place] [address] Er, Authorized P NO ADDRESS ON FILE state, incidental (Primary Dx) Social History Tobacco Use Types Packs/Day Years Used Date Smoking Tobacco: Never Assessed Comments Unknown Sex and Gender Information Value Date Recorded Sex Assigned at Not on file 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 [place] [address] PCP - General 01/08/00 documented as of this encounter
[2024-06-13 14:00] VITALS: BP 127/94; PULSE 87; RESP 16; O2SAT 97
--- NOTE | 2024-06-13 14:02 | ED_ITS ---
HPI - Headache General Chief Complaint: Headache Stated Complaint: migraine Time Seen by Provider: 06/13/24 14:00 Source: patient and family Mode of arrival: ambulatory Limitations: no limitations History of Present Illness HPI Narrative: Patient is a 44-year-old female with a migraine headache which is same as prior headaches. She has been having headache all week. She is due for her monthly injection however insurance issues have a christin and she could not get her injection. That should be resolved this week. MD elicited complaint: migraine Pertinent past history: migraines Onset (ago): week(s) (1) Onset description: gradually Location: generalized Severity: similar to previous episodes Pain scale (0-10): 9 Quality & Timing: throbbing, sharp, steady, constant and similar to previous headaches Exacerbating factors: exertion, movement of head/neck, sitting/standing, light, noise and rest Relieving factors: nothing Context: other ( Patient has not gotten her monthly injection) Associated symptoms: nausea Treatments prior to arrival: prescription analgesic Related Data Home Medications ?Medication ?Instructions ?Recorded ?Confirmed ?Last Taken ?Type erenumab-aooe 140 mg/mL 140 mg subcut MONTHLY 06/22/23 06/22/23 Unknown History subcutaneous auto-injector (Aimovig Autoinjector) ondansetron 4 mg disintegrating 4 mg PO Q6-8H PRN Nausea 06/22/23 06/22/23 Unknown History tablet Allergies Allergy/AdvReac Type Severity Reaction Status Date / Time egg Allergy Mild Hives Verified 06/13/24 14:00 iodine Allergy Mild CONTRAST Verified 06/13/24 14:00 DYE Contrast Media Allergy Mild RAISED Uncoded 06/13/24 14:00 AREA REDDENED Review of Systems Review of Systems: All systems reviewed & are unremarkable except as noted in HPI and below Constitutional: Constitutional: Reports no additional constitutional complaints Eyes: Eyes: Reports no additional eye complaints ENT: Reports system reviewed and no additional complaints, except as documented Cardiovascular: Cardiovascular: Reports no additional cardiovascular complaints Respiratory: Respiratory: Reports no additional respiratory complaints Gastrointestinal: Gastrointestinal: Reports no additional gastrointestinal complaints Genitourinary: Genitourinary: Reports no additional female genitourinary complaints Musculoskeletal: Musculoskeletal: Reports no additional musculoskeletal complaints Integumentary/Breasts: Skin/Breast: Reports system reviewed and no additional complaints, except as docu Neurologic: Reports system reviewed and no additional complaints, except as documented Psychiatric: Psychiatric: Reports no additional psychiatric complaints Endocrine: Endocrine: Reports no additional endocrine complaints Hematologic/Lymphatic: Hematologic/Lymphatic: Reports no additional hematologic/lymphatic complaints Allergic/Immunologic: Allergic/Immunologic: Reports no additional allergic/immunologic complaints Exam Const: General: healthy appearing Nutritional Appearance: well nourished Orientation/consciousness: patient oriented x3 Limitations: no limitations HENMT: Head: normal to inspection Ears: external ears normal F travis/Nose/Sinus: Normal external nose present Eyes: Conjunctivae: conjunctivae normal Pupils: Equal, round and reactive pupils present EOM: EOMs intact bilaterally Neck: Neck: normal visual inspection Chest: Chest palpation & inspection: normal inspection of the chest Resp: Effort & Inspection: normal respiratory effort and not labored Auscultation: clear to auscultation bilaterally and no crackles Cardio: Rate: regular rate Rhythm: regular rhythm Heart sounds: no murmurs GI: Inspection: non-distended GI Palp: Yes Soft to palpation and No Tenderness to palpation present (GI) Auscultation: normal bowel sounds : General: Yes bladder normal to palpation Back/Spine/Pelvis: Back: no CVA tenderness Skin: General skin exam: normal color Rashes: no rashes Wounds: no wounds Neuro: General: patient oriented x3 Cranial nerves: Yes Nystagmus not present Speech: normal speech Gait exam (Neuro): Normal gait present Extrem: General: normal to inspection Psych: Mental Status: mental status grossly normal Affect: normal affect Attitude: cooperative Course Vital Signs Vital signs: Vital Signs Temperature 36.6 C 06/13/24 13:58 Pulse Rate 103 H 06/13/24 13:58 Respiratory Rate 18 06/13/24 13:58 Blood Pressure 144/100 H 06/13/24 13:58 Pulse Oximetry 97 06/13/24 13:58 Oxygen Delivery Room Air 06/13/24 13:58 Temperature 36.6 C 06/13/24 13:58 Pulse Rate 103 H 06/13/24 13:58 Respiratory Rate 18 06/13/24 13:58 Blood Pressure 144/100 H 06/13/24 13:58 Pulse Oximetry 97 06/13/24 13:58 Oxygen Delivery Room Air 06/13/24 13:58 MDM - Headache MDM Narrative Medical decision making narrative: patient is a 44-year-old female with chronic migraines and having migraine for the past week due to out of medication. We will put her on triple IV therapy. Imaging Data Radiologist's impression: Patient refused CT of the head Discharge Plan Discharge Clinical Impression: Migraine Qualifiers: Migraine type: unspecified Status migrainosus presence: without status migrainosus Intractability: not intractable Qualified Code(s): G43.909 - Migraine, unspecified, not intractable, without status migrainosus Patient Disposition: Home, Self-Care Condition: Stable Instructions: Migraine Headache (ED) Patient Language: Kazakh Prescriptions: No Action ondansetron 4 mg tablet,disintegrating 4 mg PO Q6-8H PRN (Reason: Nausea) Aimovig Autoinjector 140 mg/mL auto-injector 140 mg SUBCUT MONTHLY prednisone 20 mg tablet 40 mg PO BID Qty: 10 0RF Zyrtec 10 mg capsule 10 mg PO BID PRN (Reason: allergy symptoms) Qty: 10 0RF Follow-up/Referrals: Yehuda Hearn MD [Primary Care Provider] - Time of Disposition: 15:30
[2024-06-13 14:30] VITALS: BP 126/91; PULSE 87; RESP 17; O2SAT 97
--- OUTSIDE RECORDS SUMMARY | 2024-06-13 14:38 | XMS_ITS | Encounter Summary ---
Author Organization [facility] Address [address] [facility] [address] [place] [address] Phone Care Team Providers Care Canteen Operator Name Role Phone Yehuda Hearn MD Primary Care Provider [phone] Yehuda Hearn MD Unavailable [phone] Jeff Browne NP Unavailable [phone] Reason for Visit * Reason Onset Date Comments Medical Question/Miscellaneous 06/04/2024 Encounter Details Date Type Department Care Team (Late st Contact Info) Description 06/04/2024 Telephone [facility] Surgery [address] [facility] [place] Floor [address] [place] [address] Annamarie Harper NP [address] [address] Medical Question/Miscellaneous Social History Tobacco [...] on file Legal Sex Female 4:57 AM BAGGAGEMAN Gender Identity Female 02/05/2024 9:37 AM CDT [...] them to contact for a call back: [phone] AGEMAN documented in this encounter Plan of Treatment Not on file documented as of this encounter Visit Diagnoses Not on filedocumented in this encounter Care Teams Canteen Operator Relationship Specialty Start Date End Date Yehuda Hearn MD PCP - General 04/24/20 Yehuda Hearn MD Internal Medicine 04/24/20 Jeff Browne NP [address] [place] [address] DR DANIELSON [address] [place] [address] Nurse Practitioner Orthopedic Surgery 02/17/24 documented as of this encounter
--- OUTSIDE RECORDS SUMMARY | 2024-06-13 14:38 | XMS_ITS | Clinical Summary ---
Author Organization [facility] Address [address] [place] [address]. [place], [place] [address] [place] [address] Care Team Providers Care Emergency Medicine Specialist Name Role Phone Yehuda Hearn MD Primary Care Provider [phone] Allergies No known active allergies Medications rizatriptan [...] patient's age to complete this topic Insurance [facility] Care Teams Emergency Medicine Specialist Relationship Specialty Start Date End Date Yehuda Hearn MD [address] [place] [address] PCP - General INTERNAL MEDICINE 01/07/19
[2024-06-13] MEDS: SODIUM CHLORIDE 0.9% IV 1,000 ML 999 ML IV CONT (14:39)
--- OUTSIDE RECORDS SUMMARY | 2024-06-13 14:39 | XMS_ITS | Encounter Summary ---
Author Organization [employer] Address [address] [place] [address] Care Team Providers Care Strategic Debriefing Officer Name Role Phone Duke Castillo MD Primary Care Provider Encounter Details Date Type Department Care Team (Latest Contact Info) Description 08/22/1999 Outpatient Historical [facility],[place] 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 [place] [address] PCP - General 01/08/00 documented as of this encounter
--- OUTSIDE RECORDS SUMMARY | 2024-06-13 14:39 | XMS_ITS | Clinical Summary ---
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
--- OUTSIDE RECORDS SUMMARY | 2024-06-13 14:39 | XMS_ITS | Clinical Summary ---
Author Organization [facility] Address [address] [place] [address] Care Team Providers Care Trouble Locater Name Role Phone Yehuda Hearn MD Primary Care Provider [phone] Yehuda Hearn MD Unavailable Jeff Browne NP Unavailable [phone] Allergies Active Allergy Reactions Criticality Noted Date [...] Type Department Care Team Description 06/04/2024 Telephone [facility] Floor [address] [place] [address] Annamarie Harper NP Medical Question/Miscellane ous 06/03/2024 5:23 PM DESKTOP SUPPORT SPECIALIST - 06/03/2024 11:59 PM DESKTOP SUPPORT SPECIALIST Hospital Encounter [facility] [address] [place] [phone] Discharge Disposition: Discharge to home or self care 06/01/2024 Orders Only [facility] [address] [place] [address] Annamarie Harper NP 05/28/2024 Orders Only [facility] Surgery [address] [place] [address] [address] [place] [address] Jocelyn Mandel RN Abnormal mammogram (Primary Dx); Mass of lower outer quadrant of left breast 05/27/2024 3:45 PM DESKTOP SUPPORT SPECIALIST Office Visit [facility] [address] [place] [address] Jeff Browne NP Status post total knee replacement, right (Primary Dx); Sprain of medial collateral ligament of right knee, subsequent encounter 05/27/2024 7:46 AM DESKTOP SUPPORT SPECIALIST - 05/27/2024 11:59 PM DESKTOP SUPPORT SPECIALIST Hospital Encounter [facility] [address] [place] [address] [address] [place] [address] Discharge Disposition: Discharge to home or self care 05/21/2024 9:20 AM DESKTOP SUPPORT SPECIALIST Ancillary Procedure [facility] 05/21/2024 9:10 AM DESKTOP SUPPORT SPECIALIST Ancillary Procedure [facility] 05/19/2024 1:10 PM DESKTOP SUPPORT SPECIALIST Ancillary Procedure [facility] 04/29/2024 2:00 PM DESKTOP SUPPORT SPECIALIST Office Visit [facility] [address] [place] [address] [address] [place] [address] Jeff Browne NP Status post total knee replacement, right (Primary Dx); Sprain of medial collateral ligament of right knee, initial encounter 04/29/2024 7:45 AM DESKTOP SUPPORT SPECIALIST - 04/29/2024 11:59 PM DESKTOP SUPPORT SPECIALIST Hospital Encounter [facility] [address] [place] [address] [address], [place] [address] Discharge Disposition: Discharge to home or self care 04/13/2024 3:45 PM DESKTOP SUPPORT SPECIALIST Office Visit [facility] [address] [place] [address] [address], [place] [address] Jeff Browne NP Status post total knee replacement, right (Primary Dx) 04/13/2024 7:56 AM DESKTOP SUPPORT SPECIALIST - 04/13/2024 11:59 PM DESKTOP SUPPORT SPECIALIST Hospital Encounter [facility] [address] [place] [address] [address], [place] [address] Discharge Disposition: Discharge to home or self care 03/30/2024 11:00 AM DESKTOP SUPPORT SPECIALIST Office Visit [facility] [address] [place] [address] [address], [place] [address] Valarie Marcelo, MUA Status post total knee replacement, right (Primary Dx) 03/30/2024 7:11 AM DESKTOP SUPPORT SPECIALIST - 03/30/2024 11:59 PM DESKTOP SUPPORT SPECIALIST Hospital Encounter [facility] [address] [place] [address] Status post total knee replacement, right Discharge Disposition: Discharge to home or self care 03/29/2024 Orders Only [facility] [address] [facility] [address] [place] [address] Piotr Hallman PA Status post total knee replacement, right (Primary Dx) 03/29/2024 Orders Only [facility] [address] [facility] [address] [place] [address] Piotr Hallman PA Status post total knee replacement, right (Primary Dx) 03/29/2024 Telephone [facility] [address] [place] [id number] Piotr Hallman PA 03/19/2024 Telephone [facility] [address] [facility] [address] [place] [address] Roosevelt Winchester MD from Last 3 Months [...] on file Legal Sex Female 4:57 AM DESKTOP SUPPORT SPECIALIST Gender Identity Female 02/05/2024 9:37 AM CDT Sexual Orientation Straight 12/24/2022 10 :40 AM CDT Obstetrics History Last Filed Vital Signs Vital Sign Reading Time Taken Comments Blood Pressure 128/70 05/27/2024 3:48 PM DESKTOP SUPPORT SPECIALIST Pulse 76 05/27/2024 3:48 PM DESKTOP SUPPORT SPECIALIST Temperature 36.4 ??C (97.6 ??F) 02/17/2024 3:58 PM CD T Respiratory Rate 16 02/17/2024 3:58 PM CDT Oxygen Saturation 99% 02/17/2024 3:58 PM CDT Inhaled Oxygen Concentration - - Weight 108.9 kg (240 lb) 05/27/2024 3:48 PM DESKTOP SUPPORT SPECIALIST Height 170.2 cm (5' 7 ) 05/27/2024 3:48 PM DESKTOP SUPPORT SPECIALIST Body Mass Index 37.59 05/27/2024 3:48 PM DESKTOP SUPPORT SPECIALIST Plan of Treatment Health Maintenance Due Date [...] this topic Medical Devices Implanted Type Area Template Layout Worker Device Identifier Shelf Expiration Date Model / Serial / Lot [employer] Attune Cruciate Retain Cementless Knee Right 4 Component Femoral [id number] - [id number] Implanted:Qty: 1 on 02/17/2024 by Roosevelt Winchester MD at [facility] Right: Knee [employer] [id number] 12/09/2033 [id number] / / [id number] [employer] Insert Tibial Knee Fixed Rm Posterior Stabilized Attune 8mm Size 4 Polyethylene [id number] - [id number] Implanted:Qty: 1 on 02/17/2024 by Roosevelt Winchester MD at [facility] Right: Knee [employer] [id number] 12/09/2030 [id number] / / [id number] [employer] Attune Fb Tib Base Sz 4 Por [id number] - [id number] Implanted:Qty: 1 on 02/17/2024 by Roosevelt Winchester MD at [facility] Right: Knee [employer] [id number] 01/09/2034 [id number] / / [id number] Procedures Procedure Name Priority Date/Time Associated Diagnosis Comments BREAST IMAGING MG DIAGNOSTIC OUTSIDE CONSULT Routine 06/03/2024 5:23 PM DESKTOP SUPPORT SPECIALIST XR KNEE RIGHT 3 VIEWS Schedule Routine, Read Routine (OP Routine) 05/27/2024 3:42 PM DESKTOP SUPPORT SPECIALIST Status post total knee replacement, right BREAST IMAGING US OUTSIDE REFERENCE Routine 05/21/2024 9:20 AM DESKTOP SUPPORT SPECIALIST BREAST IMAGING MG DIAGNOSTIC OUTSIDE REFERENCE Routine 05/21/2024 9:10 AM DESKTOP SUPPORT SPECIALIST BREAST IMAGING MG SCREENING OUTSIDE REFERENCE Routine 05/19/2024 1:10 PM DESKTOP SUPPORT SPECIALIST XR KNEE RIGHT 3 VIEWS Schedule Routine, Read Routine (OP Routine) 04/29/2024 2:09 PM DESKTOP SUPPORT SPECIALIST Status post total knee replacement, right XR KNEE RIGHT 1 OR 2 VIEWS Schedule Routine, Read Routine (OP Routine) 04/13/2024 3:36 PM DESKTOP SUPPORT SPECIALIST Status post total knee replacement, right US VEIN DUPLEX LOWER EXTREMITY RIGHT LIMITED Schedule Routine, Read Routine (OP Routine) 03/30/2024 8:15 AM DESKTOP SUPPORT SPECIALIST Status post total knee replacement, right from Last 3 Months Results * Breast Imaging DX Outside Consult (06/03/2024 5:23 PM DESKTOP SUPPORT SPECIALIST) Anatomical Region Laterality Modality Breast N/A Mammography 06/04/2024 10:2 6 AM DESKTOP SUPPORT SPECIALIST Impressions 06/04/2024 11:52 AM DESKTOP SUPPORT SPECIALIST 1. ??Oval 1.3 cm isoechoic mass is [...] images may or may not represent the [place] source data set and thus may contain changes which may lower the sensitivity of the second opinion interpretation. Dictated by: Swati Kitchen MD The radiology attending physician has personally reviewed this study, and had reviewed and/or edited this written report and agrees with it. Electronically signed by: Dolly Clark M.D. Narrative 06/04/2024 11:52 AM DESKTOP SUPPORT SPECIALIST EXAMINATION: REVIEW AND INTERPRETATION OF OUTSIDE IMAGING FACILITY PERFORMING OUTSIDE IMAGING: [facility] EXAM(S) REVIEWED: 1. ??BILATERAL SCREENING MAMMOGRAM WITH [...] OF OUTSIDE IMAGING FACILITY PERFORMING OUTSIDE IMAGING: [facility] EXAM(S) REVIEWED: 1. BILATERAL SCREENING MAMMOGRAM WITH [...] images may or may not represent the [place] source data set and thus may contain changes which may lower the sensitivity of the second opinion interpretation. Dictated by: Swati Kitchen MD The radiology attending physician has personally reviewed this study, and had reviewed and/or edited this written report and agrees with it. Electronically signed by: Dolly Clark M.D. us Annamarie Harper JANITOR SUPERVISOR IMG MAMMO PROCEDURES Fi nal Result * XR Knee Right 3 Views (05/27/2024 3:42 PM DESKTOP SUPPORT SPECIALIST) Anatomical Region Laterality Modality Lower Extremities, Knee Right Digital Radiography Narrative 05/27/2024 4:00 PM DESKTOP SUPPORT SPECIALIST X-rays of the right knee are reviewed and interpreted and demonstrate no acute fractures subluxations or osseous changes. ??Status post TKA changes noted with implants in acceptable position. us Jeff Browne NP IMG XR PROCEDURES Final Result * Breast Imaging US Outside Reference (05/21/2024 9:20 AM DESKTOP SUPPORT SPECIALIST) Narrative [facility] - 06/03/2024 12:02 PM DESKTOP SUPPORT SPECIALIST This order has been auto-finalized and does not contain a result. us Provider Transcribed Order IMG MAMMO PROCEDURES Final Result [facility] * Breast Imaging Diagnostic Outside Reference (05/21/2024 9:10 AM DESKTOP SUPPORT SPECIALIST) Narrative [facility] - 06/03/2024 12:02 PM DESKTOP SUPPORT SPECIALIST This order has been auto-finalized and does not contain a result. us Provider Transcribed Order IMG MAMMO PROCEDURES Final Result Performing Organization Address [facility] de Phone Number RAD_PACS_[facility] * Breast Imaging Screening Outside Reference (05/19/2024 1:10 PM DESKTOP SUPPORT SPECIALIST) Narrative [facility] - 06/03/2024 12:02 PM DESKTOP SUPPORT SPECIALIST This order has been auto-finalized and does not contain a result. us Provider Transcribed Order IMG MAMMO PROCEDURES Final Result Performing Organization Address [facility] Phone Number RAD_PACS[facility] * XR Knee Right 3 Views (04/29/2024 2:09 PM DESKTOP SUPPORT SPECIALIST) Anatomical Region Laterality Modality Lower Extremities, Knee Right Digital Radiography Narrative 04/29/2024 2:09 PM DESKTOP SUPPORT SPECIALIST X-rays of the right knee are reviewed and interpreted and demonstrate no acute fractures subluxations or osseous changes. ??Status post TKA changes noted with implants in acceptable position. us Jeff Browne NP IMG XR PROCEDURES Final Result * XR Knee Right 1 or 2 Views (04/13/2024 3:36 PM DESKTOP SUPPORT SPECIALIST) Anatomical Region Laterality Modality Lower Extremities, Knee Right Digital Radiography Narrative 04/13/2024 4:02 PM DESKTOP SUPPORT SPECIALIST X-rays of the right knee are reviewed and interpreted and demonstrate no acute fractures subluxations or osseous changes. ??Status post TKA changes noted with implants in acceptable position. us Jeff Browne NP IMG XR PROCEDURES Final Result * US VEIN DUPLEX LOWER EXTREMITY RIGHT LIMITED, UNILATERAL (03/30/2024 8:15 AM DESKTOP SUPPORT SPECIALIST) Anatomical Region Laterality Modality Vascular Right Ultrasound 03/30/2024 8:23 AM DESKTOP SUPPORT SPECIALIST Narrative 03/30/2024 8:24 AM DESKTOP SUPPORT SPECIALIST EXAM DESCRIPTION: ?? US VEIN DUPLEX LOWER [...] AM T: ??03/30/2024 8:24 AM Report ID: [id number] Reading Location: ??[id number] Procedure Note Samir Ross MD - 03/30/2024 [...] Samir Ross M.D. MM: MM Report ID: [id number] Reading Location: [id number] Piotr [facility] PROCEDURES Final Res ult from Last 3 Months Insurance [facility] CHOICE PLUS [facility] CHO[facility] PLUS Advance Directives For more information, please contact: [phone] * Full Code (Latest Code Status on File) Date Activated Date Inactivated Comments 02/17/2024 10:44 AM 02/17/2024 8:06 PM Care Teams Trouble Locater Relationship Specialty Start Date End Date Yehuda Hearn MD PCP - General 04/24/20 Yehuda Hearn MD Internal Medicine 04/24/20 Jeff Browne NP [address] [place] [address] DR DANIELSON [address] [place] [address] Nurse Practitioner Orthopedic Surgery 02/17/24
--- OUTSIDE RECORDS SUMMARY | 2024-06-13 14:39 | XMS_ITS | Referral Summary ---
Author Organization [facility] Address [address] [place] [address] Care Team Providers Care Carpenter Repairer Name Role Phone Yehuda Hearn MD Primary Care Provider [phone] Yehuda Hearn MD Unavailable [phone] Jeff Browne NP Unavailable [phone] Encounters Date Type Department Care Team Description 06/04/2024 Telephone [facility] [address] [place] [address] Floor 5 [place] [address] Annamarie Harper NP Medical Question/Miscellane ous 06/03/2024 5:23 PM ELECTRIC FRYING PAN REPAIRER - 06/03/2024 11:59 PM ELECTRIC FRYING PAN REPAIRER Hospital Encounter [facility] [address] [place] [address] Discharge Disposition: Discharge to home or self care 06/01/2024 Orders Only [facility] [address] [place] [address] 8 [place] [address] Annamarie Harper, UMA 05/28/2024 Orders Only [facility] [address] [place] [address] 8 [place] [address] Jocelyn Mandel RN Abnormal mammogram (Primary Dx); Mass of lower outer quadrant of left breast 05/27/2024 7:46 AM ELECTRIC FRYING PAN REPAIRER - 05/27/2024 11:59 PM ELECTRIC FRYING PAN REPAIRER Hospital Encounter [facility] [address] [place] [address] [address], [place] [address] Discharge Disposition: Discharge to home or self care 05/27/2024 3:45 PM ELECTRIC FRYING PAN REPAIRER Office Visit [facility] [address] [place] [address] [address], [place] [address] Jeff Browne NP Status post total knee replacement, right (Primary Dx); Sprain of medial collateral ligament of right knee, subsequent encounter 05/21/2024 9:20 AM ELECTRIC FRYING PAN REPAIRER Ancillary Procedure [facility] 05/21/2024 9:10 AM ELECTRIC FRYING PAN REPAIRER Ancillary Procedure [facility] 05/19/2024 1:10 PM ELECTRIC FRYING PAN REPAIRER Ancillary Procedure [facility] 04/29/2024 7:45 AM ELECTRIC FRYING PAN REPAIRER - 04/29/2024 11:59 PM ELECTRIC FRYING PAN REPAIRER Hospital Encounter [facility] [address] [place] [address] [address], [place] [address] Discharge Disposition: Discharge to home or self care 04/29/2024 2:00 PM ELECTRIC FRYING PAN REPAIRER Office Visit [facility] [address] [place] [address] [address], [place] [address] Jeff Browne NP Status post total knee replacement, right (Primary Dx); Sprain of medial collateral ligament of right knee, initial encounter 04/13/2024 7:56 AM ELECTRIC FRYING PAN REPAIRER - 04/13/2024 11:59 PM ELECTRIC FRYING PAN REPAIRER Hospital Encounter [facility] [address] [place] [address] [address], [place] [address] Discharge Disposition: Discharge to home or self care 04/13/2024 3:45 PM ELECTRIC FRYING PAN REPAIRER Office Visit [facility] [address] [place] [address] [address], [place] [address] Jeff Browne NP Status post total knee replacement, right (Primary Dx) 03/30/2024 11:00 AM ELECTRIC FRYING PAN REPAIRER Office Visit [facility] [address] [place] [address] [address] [place] [address] Valarie Marcelo NP Status post total knee replacement, right (Primary Dx) 03/30/2024 7:11 AM ELECTRIC FRYING PAN REPAIRER - 03/30/2024 11:59 PM ELECTRIC FRYING PAN REPAIRER Hospital Encounter [facility] [address] [place] [address] Status post total knee replacement, right Discharge Disposition: Discharge to home or self care 03/29/2024 Orders Only [facility] Medical [facility] [address] [place] [address] [address] [place] [address] Piotr Hallman PA Status post total knee replacement, right (Primary Dx) 03/29/2024 Orders Only [facility] [address] [place] [address] [address] [place] [address] Piotr Hallman PA Status post total knee replacement, right (Primary Dx) 03/29/2024 Telephone [facility] [address] [place] [address] Piotr Hallman PA 03/19/2024 Telephone [facility] [address] [place] [address] [address] [place] [address] Roosevelt Winchester MD from Last 3 Months [...] on file Legal Sex Female 4:57 AM ELECTRIC FRYING PAN REPAIRER Gender Identity Female 02/05/2024 9:37 AM CDT Sexual Orientation Straight 12/24/2022 10 :40 AM CDT Last Filed Vital Signs Vital Sign Reading Time Taken Comments Blood Pressure 128/70 05/27/2024 3:48 PM ELECTRIC FRYING PAN REPAIRER Pulse 76 05/27/2024 3:48 PM ELECTRIC FRYING PAN REPAIRER Temperature 36.4 ??C (97.6 ??F) 02/17/2024 3:58 PM CD T Respiratory Rate 16 02/17/2024 3:58 PM CDT Oxygen Saturation 99% 02/17/2024 3:58 PM CDT Inhaled Oxygen Concentration - - Weight 108.9 kg (240 lb) 05/27/2024 3:48 PM ELECTRIC FRYING PAN REPAIRER Height 170.2 cm (5' 7 ) 05/27/2024 3:48 PM ELECTRIC FRYING PAN REPAIRER Body Mass Index 37.59 05/27/2024 3:48 PM ELECTRIC FRYING PAN REPAIRER Plan of Treatment Not on file Medical Devices Implanted Type Area Rope Tow Operator Device Identifier Shelf Expiration Date Model / Serial / Lot [employer] Attune Cruciate Retain Cementless Knee Right 4 Component Femoral [id number] - [id number] Implanted:Qty: 1 on 02/17/2024 by Roosevelt Winchester MD at [facility] Right: Knee [employer] [id number] 12/09/2033 [id number] / / [id number] [employer] Insert Tibial Knee Fixed Rm Posterior Stabilized Attune 8mm Size 4 Polyethylene [id number] - [id number] Implanted:Qty: 1 on 02/17/2024 by Roosevelt Winchester MD at [facility] Right: Knee [employer] [id number] 12/09/2030 [id number] / / [id number] [employer] Attune Fb Tib Base Sz 4 Por [id number] - [id number] Implanted:Qty: 1 on 02/17/2024 by Roosevelt Winchester MD at [facility] Right: Knee [employer] [id number] 01/09/2034 [id number] / / [id number] Procedures Procedure Name Priority Date/Time Associated Diagnosis Comments BREAST IMAGING MG DIAGNOSTIC OUTSIDE CONSULT Routine 06/03/2024 5:23 PM ELECTRIC FRYING PAN REPAIRER XR KNEE RIGHT 3 VIEWS Schedule Routine, Read Routine (OP Routine) 05/27/2024 3:42 PM ELECTRIC FRYING PAN REPAIRER Status post total knee replacement, right BREAST IMAGING US OUTSIDE REFERENCE Routine 05/21/2024 9:20 AM ELECTRIC FRYING PAN REPAIRER BREAST IMAGING MG DIAGNOSTIC OUTSIDE REFERENCE Routine 05/21/2024 9:10 AM ELECTRIC FRYING PAN REPAIRER BREAST IMAGING MG SCREENING OUTSIDE REFERENCE Routine 05/19/2024 1:10 PM ELECTRIC FRYING PAN REPAIRER XR KNEE RIGHT 3 VIEWS Schedule Routine, Read Routine (OP Routine) 04/29/2024 2:09 PM ELECTRIC FRYING PAN REPAIRER Status post total knee replacement, right XR KNEE RIGHT 1 OR 2 VIEWS Schedule Routine, Read Routine (OP Routine) 04/13/2024 3:36 PM ELECTRIC FRYING PAN REPAIRER Status post total knee replacement, right US VEIN DUPLEX LOWER EXTREMITY RIGHT LIMITED Schedule Routine, Read Routine (OP Routine) 03/30/2024 8:15 AM ELECTRIC FRYING PAN REPAIRER Status post total knee replacement, right from Last 3 Months Results * Breast Imaging DX Outside Consult (06/03/2024 5:23 PM ELECTRIC FRYING PAN REPAIRER) Anatomical Region Laterality Modality Breast N/A Mammography 06/04/2024 10:2 6 AM ELECTRIC FRYING PAN REPAIRER Impressions 06/04/2024 11:52 AM ELECTRIC FRYING PAN REPAIRER 1. ??Oval 1.3 cm isoechoic mass is [...] images may or may not represent the [place] source data set and thus may contain changes which may lower the sensitivity of the second opinion interpretation. Dictated by: Swati Kitchen MD The radiology attending physician has personally reviewed this study, and had reviewed and/or edited this written report and agrees with it. Electronically signed by: Dolly Clark M.D. Narrative 06/04/2024 11:52 AM ELECTRIC FRYING PAN REPAIRER EXAMINATION: REVIEW AND INTERPRETATION OF OUTSIDE IMAGING FACILITY PERFORMING OUTSIDE IMAGING: [facility] EXAM(S) REVIEWED: 1. ??BILATERAL SCREENING MAMMOGRAM [...] OF OUTSIDE IMAGING FACILITY PERFORMING OUTSIDE IMAGING: [facility] EXAM(S) REVIEWED: 1. BILATERAL SCREENING MAMMOGRAM [...] images may or may not represent the [place] source data set and thus may contain changes which may lower the sensitivity of the second opinion interpretation. Dictated by: Swati Kitchen MD The radiology attending physician has personally reviewed this study, and had reviewed and/or edited this written report and agrees with it. Electronically signed by: Dolly Clark M.D. us Annamarie Harper DIRECTOR OF SAFETY AND SECURITY IMG MAMMO PROCEDURES Fi nal Result * XR Knee Right 3 Views (05/27/2024 3:42 PM ELECTRIC FRYING PAN REPAIRER) Anatomical Region Laterality Modality Lower Extremities, Knee Right Digital Radiography Narrative 05/27/2024 4:00 PM ELECTRIC FRYING PAN REPAIRER X-rays of the right knee are reviewed and interpreted and demonstrate no acute fractures subluxations or osseous changes. ??Status post TKA changes noted with implants in acceptable position. us Jeff Browne DIRECTOR OF SAFETY AND SECURITY IMG XR PROCEDURES Final Result * Breast Imaging US Outside Reference (05/21/2024 9:20 AM ELECTRIC FRYING PAN REPAIRER) Narrative [facility] - 06/03/2024 12:02 PM ELECTRIC FRYING PAN REPAIRER This order has been auto-finalized and does not contain a result. us Provider Transcribed Order IMG MAMMO PROCEDURES Final Result Performing Organization Address [facility] de Phone Number RAD_PACS_[facility] * Breast Imaging Diagnostic Outside Reference (05/21/2024 9:10 AM ELECTRIC FRYING PAN REPAIRER) Narrative [facility] - 06/03/2024 12:02 PM ELECTRIC FRYING PAN REPAIRER This order has been auto-finalized and does not contain a result. us Provider Transcribed Order IMG MAMMO PROCEDURES Final Result Performing Organization Address [facility] de Phone Number RAD_P[facility] * Breast Imaging Screening Outside Reference (05/19/2024 1:10 PM ELECTRIC FRYING PAN REPAIRER) Narrative [facility] - 06/03/2024 12:02 PM ELECTRIC FRYING PAN REPAIRER This order has been auto-finalized and does not contain a result. us Provider Transcribed Order IMG MAMMO PROCEDURES Final Result Performing Organization Address [facility] de Phone Number [facility]_P[facility] * XR Knee Right 3 Views (04/29/2024 2:09 PM ELECTRIC FRYING PAN REPAIRER) Anatomical Region Laterality Modality Lower Extremities, Knee Right Digital Radiography Narrative 04/29/2024 2:09 PM ELECTRIC FRYING PAN REPAIRER X-rays of the right knee are reviewed and interpreted and demonstrate no acute fractures subluxations or osseous changes. ??Status post TKA changes noted with implants in acceptable position. us Jeff Browne NP IMG XR PROCEDURES Final Result * XR Knee Right 1 or 2 Views (04/13/2024 3:36 PM ELECTRIC FRYING PAN REPAIRER) Anatomical Region Laterality Modality Lower Extremities, Knee Right Digital Radiography Narrative 04/13/2024 4:02 PM ELECTRIC FRYING PAN REPAIRER X-rays of the right knee are reviewed and interpreted and demonstrate no acute fractures subluxations or osseous changes. ??Status post TKA changes noted with implants in acceptable position. us Jeff Browne NP IMG XR PROCEDURES Final Result * US VEIN DUPLEX LOWER EXTREMITY RIGHT LIMITED, UNILATERAL (03/30/2024 8:15 AM ELECTRIC FRYING PAN REPAIRER) Anatomical Region Laterality Modality Vascular Right Ultrasound 03/30/2024 8:23 AM ELECTRIC FRYING PAN REPAIRER Narrative 03/30/2024 8:24 AM ELECTRIC FRYING PAN REPAIRER EXAM DESCRIPTION: ?? US VEIN DUPLEX LOWER [...] AM T: ??03/30/2024 8:24 AM Report ID: [id number] Reading Location: ??[id number] Procedure Note Samir Ross MD - 03/30/2024 [...] Samir Ross M.D. MM: MM Report ID: [id number] Reading Location: [id number] us Piotr PAINTING IMG US PROCEDURES Final Res ult from Last 3 Months Insurance [facility] CHOICE PLUS [facility] CHOICE PLUS Advance Directives For more information, please contact: [phone] * Full Code (Latest Code Status on File) Date Activated Date Inactivated Comments 02/17/2024 10:44 AM 02/17/2024 8:06 PM Care Teams Carpenter Repairer Relationship Specialty Start Date End Date Yehuda Hearn MD PCP - General 04/24/20 Yehuda Hearn MD Internal Medicine 04/24/20 Jeff Browne NP [address] [place] [address] [place] [address] Nurse Practitioner Orthopedic Surgery 02/17/24
--- OUTSIDE RECORDS SUMMARY | 2024-06-13 14:39 | XMS_ITS | Encounter Summary ---
Author Organization [facility] Address [address] [place] [address] Care Team Providers Care Plastic Battery Assembler Name Role Phone Duke Castillo MD Primary Care Provider Encounter Details Date Type Department Care Team (Late st Contact Info) Description 01/08/2000 Outpatient Historical [facility] Andriy Pierson, [address] [facility] [address] [place] [address] Er, Authorized P NO ADDRESS ON FILE state, incidental (Primary Dx) Social History Tobacco Use Types Packs/Day Years Used Date Smoking Tobacco: Never Assessed Comments Unknown Sex and Gender Information Value Date Recorded Sex Assigned at Not on file Legal Sex Female 5:20 AM BUSINESS INFORMATION MANAGER Gender Identity Not on file Sexual Orientation Not on file documented as of this encounter Plan of Treatment Not on file documented as of this encounter Visit Diagnoses Diagnosis state, incidental- Primary documented in this encounter Care Teams Plastic Battery Assembler Relationship Specialty [place] [address] [place] [address] PCP - General 01/08/00 documented as of this encounter
[2024-06-13] MEDS: diphenhydrAMINE HCl INJ 50 MG/ML VIAL 25 MG IV PUSH (14:40)
[2024-06-13] MEDS: KETOROLAC 30 MG/ML VIAL (*BKC) IV PUSH (14:42)
[2024-06-13] MEDS: METOCLOPRAMIDE HCL INJ 10 MG/2 ML VIAL IV PUSH (14:46)
[2024-06-13 15:00] VITALS: BP 117/96; PULSE 88; RESP 17; O2SAT 99
[2024-06-13] MEDS: oxyCODONE/ACETAMINOPHEN (*CRX) 5-325 MG TABLET 1 TABLET PO (15:26)
[2024-06-13 15:30] VITALS: BP 112/74; PULSE 85; RESP 17; O2SAT 99
[2024-06-13 15:34] VITALS: BP 112/74; PULSE 85; RESP 17; TEMP 36.8; O2SAT 99
== END 2024-06-13 15:34 | disposition home or self-care (01) ==
PROVIDERS: Emergency Provider Emergency Medicine; PCP Internal Medicine
DX: G43.909 Migraine, unspecified, not intractable, without status migrainosus (principal)
CPT/HCPCS: 96361; 96374; 96375; 99284; A9270; J1200; J1885; J2765; J7030

== ENCOUNTER 2025-05-09 15:38 | Outpatient (CLI) | payer OTHER, SELFPAY ==
--- OUTSIDE RECORDS SUMMARY | 2025-05-09 15:45 | XMS_ITS | Clinical Summary ---
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 on file Not on valente e Not on file Last Filed Vital Signs Vital Sign Reading Time Taken Comments Blood Pressure 138/70 12/24/2013 8:44 AM CDT Pulse - - Temperature - - Respiratory Rate - - Oxygen Saturation - - Inhaled Oxygen Concentration - - Weight 96.6 kg (213 lb) 12/24/2013 8:44 AM CDT Height 163.8 cm (5' 4.5) 12/24/2013 8:44 AM CDT Body Mass Index 36 12/24/2013 8:44 AM CDT Plan of Treatment Health Maintenance Due Date Last Done Comments DTAP/TDAP/TD VACCINES (1 - Tdap) 1999 HEPATITIS B VACCINES (1 of 3 - 19+ 3-dose series) 09/1998 BREAST CANCER SCREENING 2020 INFLUENZA VACCINE (#1) 2024 COLORECTAL SCREENING 2025 Colorectal Cancer Screening 2025 FIT-DNA Q 3 years 2025 FIT/FOBT Q 1 year 2025 Flex Sig/CT Colonography Q 5 years 2025 HPV VACCINES (No Doses Required) Completed Insurance BLUE ACCESS/TRUE BLUE PPO Care Teams Senior Bi Developer Relationship Specialty Start Date End Date Duke Castillo MD PCP - General 01/08/00
--- OUTSIDE RECORDS SUMMARY | 2025-05-09 15:45 | XMS_ITS | Clinical Summary ---
Author Organization [facility] Address [address] [place] [address] Phone Care Team Providers Care Occupational Psychologist Name Role Phone Yehuda Hearn MD Primary Care Provider [phone] Elisha Alvarado APRN, BUILDING MAINTENANCE SUPERINTENDENT Unavailable [phone] Allergies Active Allergy Reactions Criticality Noted Date Comments Topiramate Other (see Comments) 12/13/2024 Tinnitus Medications ondansetron (ZOFRAN) 4 MG Tablet Take 4 mg by mouth every 8 hours as needed. Active Erenumab-aooe (AIMOVIG SC) by Subcutaneous route. Active celecoxib (CeleBREX) 200 MG Capsule Take 200 mg by mouth. 12/04/19 25 Active rimegepant sulfate (Nurtec) 75 MG TABLET DISPERSIBLEInd ications:Migra ine Take 1 Tablet by mouth every 48 hours as needed for Other (headache/migra ine). Indications: Migraine Headache 7 Tablet 2 02/19/20 25 Active Qulipta 60 MG TabletIndicati ons:Chronic migraine without aura without status migrainosus, not intractable TAKE 1 TABLET BY MOUTH NIGHTLY. 30 Tablet 2 04/25/20 25 Active atogepant (Qulipta) 60 MG TabletIndicati ons:Chronic migraine without aura without status migrainosus, not intractable Take 1 Tablet by mouth nightly. 30 Tablet 2 02/19/20 25 025 Discontinued Active Problems No known active problems Encounters Date Type Department Care Team Description 04/25/2025 Refill [facility] [address] [place] [address] Elisha Alvarado APRN, BUILDING MAINTENANCE SUPERINTENDENT Medication Refill 03/10/2025 3:00 PM CDT Immunization [facility] [address] [place] [address] Nurse, [facility] Vitamin B 12 deficiency (Primary Dx) Discharge Disposition: Discharged to home or Selfcare 03/09/2025 Travel 03/04/2025 2:33 PM CDT - 03/04/2025 11:59 PM CDT Hospital Encounter [facility] MRI [address] [place] [address] Elisha Alvarado APRN, BUILDING MAINTENANCE SUPERINTENDENT Discharge Disposition: Discharged to home or Selfcare 03/04/2025 Results Follow-Up [facility] [address] [place] [address] Elisha Alvarado APRN, BUILDING MAINTENANCE SUPERINTENDENT VITAMIN B12, MAGNESIUM (MG), MRI BRAIN W/WO CONTRAST 03/04/2025 Travel 02/18/2025 3:30 PM CDT Office Visit [facility] [address] [place] [address] Elisha Alvarado APRN, BUILDING MAINTENANCE SUPERINTENDENT Chronic migraine without aura without status migrainosus, not intractable (Primary Dx) Discharge Disposition: Discharged to home or Selfcare 02/17/2025 Travel from Last 3 Months Family History Medical History Relation Name Comments Diabetes Mother Relation Name Status Comments Mother Social History Tobacco Use Types Packs/Day Years Used Date Smoking Tobacco: Former Cigarettes Smokeless Tobacco: Never Tobacco Cessation:Counseling Given: Not Answered Alcohol Use Standard Drinks/Week Comments Yes 0 (1 standard drink = 0.6 oz pur e alcohol) social Comments Unknown Sex and Gender Information Value Date Recorded Sex Assigned at Not on file Legal Sex Female 9:52 PM CDT Gender Identity Not on file Sexual Orientation Not on file Last Filed Vital Signs Vital Sign Reading Time Taken Comments Blood Pressure 138/100 02/18/2025 3:06 PM CDT Pulse 123 02/18/2025 3:06 PM CDT Temperature 36.6 C (97.9 F) 02/18/2025 3:06 PM CDT Respiratory Rate 16 02/18/2025 3:06 PM CDT Oxygen Saturation 96% 02/18/2025 3:06 PM CDT Inhaled Oxygen Concentration - - Weight 113.7 kg (250 lb 9.6 oz) 02/18/2025 3:06 PM CDT Height 167.6 cm (5' 6) 02/18/2025 3:06 PM CDT Body Mass Index 40.45 02/18/2025 3:06 PM CDT Plan of Treatment Upcoming Encounters Date Type Department Care Team (Late st Contact Info) Description 05/20/2025 1:00 PM PLACEMENT INTERVIEWER Office Visit [facility] [place] [address] [place] [address] Elisha Alvarado APRN, BUILDING MAINTENANCE SUPERINTENDENT [address] [place] [address] Health Maintenance Due Date Last Done Comments Hepatitis C Virus (HCV) Screening 1980 TdaP Immunization 1980 Hepatitis B Immunization (1 of 3 - 19+ 3-dose series) 1999 Discussion re Starting/Frequ ency of Mammograms 2020 Influenza Immunization (#1) 2025 SARS-COV-2 Immunization ( - 2024- season) 2025 Cologuard 2025 Colonoscopy 2025 Colorectal Cancer Screening 2025 Immunochemical Fecal Occult Blood 2025 Mammogram 08/05/2025 08/05/2024 Respiratory Syncytial Virus (RSV) Immunization (Adult) (1 - 1-dose 75+ series) 2055 Human Papillomavirus (HPV) Immunization (No Doses Required) Completed Meningococcal Immunization (ACWY) Aged Out No longer eligible based on patient's age to complete this topic Pneumococcal Immunization Combined Aged Out No longer eligible based on patient's age to complete this topic Rotavirus Immunization Aged Out No lo nger eligible based on patient's age to complete this topic Procedures Procedure Name Priority Date/Time Associated Diagnosis Comments MRI BRAIN W/WO CONTRAST Routine 03/04/2025 3:42 PM CDT Chronic migraine without aura without status migrainosus, not intractable MAGNESIUM (MG) Routine 03/04/2025 2:31 PM CDT Chronic migraine without aura without status migrainosus, not intractable VITAMIN B12 Routine 03/04/2025 2:31 PM CDT Chronic migraine without aura without status migrainosus, not intractable from Last 3 Months Results * MRI BRAIN W/WO CONTRAST (03/04/2025 3:42 PM CDT) Anatomical Region Laterality Modality Head N/A Magnetic Resonan ce 03/04/2025 3:42 PM CDT Impressions 03/04/2025 8:00 PM CDT IMPRESSION: 1. No acute intracranial abnormality. Narrative 03/04/2025 8:00 PM CDT DICTATING PHYSICIAN: Modesto Nassar Jr., MD EXAMINATION: MRI BRAIN W/WO CONTRAST, 03/04/2025 3:42 PM HISTORY: Chronic migraine without aura, not intractable, without status migrainosus. TECHNIQUE: Imaging protocol: Multiplanar, multisequence MR images of the brain. Contrast: 20 mL ProHance IV. COMPARISON: None. FINDINGS: Pre-gadolinium brain: Sulci, cisterns and ventricles are age appropriate. There is no evidence of acute territorial infarction, hemorrhage, mass, mass effect, or midline shift. There are no abnormal intra-axial or extra axial fluid collections. The major intracranial vascular flow voids are intact. Post-gadolinium brain: Following the uneventful administration of intravenous gadolinium, there is no evidence of abnormal brain parenchymal or leptomeningeal enhancement. Orbits: No acute abnormality. Skullbase/Calvarium: No acute abnormality. Soft tissues: Unremarkable. Paranasal sinuses: No air fluid levels. Mastoid air cells: The mastoid air cells are well aerated. No significant effusion. Procedure Note Modesto Nassar MD - 03/04/2025 DICTATING PHYSICIAN: Modesto Nassar Jr., MD EXAMINATION: MRI BRAIN W/WO CONTRAST, 03/04/2025 3:42 PM HISTORY: Chronic migraine without aura, not intractable, without statusmigrainosus. TECHNIQUE: Imaging protocol: Multiplanar, multisequence MR images of the brain. Contrast: 20 mL ProHance IV. COMPARISON: None. FINDINGS: Pre-gadolinium brain: Sulci, cisterns and ventricles are age appropriate. There is no evidence of acute territorial infarction, hemorrhage, mass,mass effect, or midline shift. There are no abnormal intra-axial or extraaxial fluid collections. The major intracranial vascular flow voids areintact. Post-gadolinium brain: Following the uneventful administration ofintravenous gadolinium, there is no evidence of abnormal brain parenchymalor leptomeningeal enhancement. Orbits: No acute abnormality. Skullbase/Calvarium: No acute abnormality. Soft tissues: Unremarkable. Paranasal sinuses: No air fluid levels. Mastoid air cells: The mastoid air cells are well aerated. No significanteffusion. IMPRESSION: 1. No acute intracranial abnormality. Elisha Alvarado APRN, BUILDING MAINTENANCE SUPERINTENDENT IMG MR ORDERABLES Fi nal Result * VITAMIN B12 (03/04/2025 2:31 PM CDT) VITAMIN B12 305 213 - 816 pg/mL 03/04/2025 3:55 PM CDT [facility] Blood Venipuncture / Unknown 03/04/2025 2:31 PM CDT 03/04/2025 2:31 PM CDT Elisha Alvarado APRN, BUILDING MAINTENANCE SUPERINTENDENT CHEMISTRY ORDERABLES Final Result [facility] [address] [place] [address] * MAGNESIUM (MG) (03/04/2025 2:31 PM CDT) MAGNESIUM 2.3 1.6 - 2.6 mg/dL 03/04/2025 2:56 PM CDT [facility] Blood Venipuncture / Unknown 03/04/2025 2:31 PM CDT 03/04/2025 2:31 PM CDT us Elisha Alvarado APRN, BUILDING MAINTENANCE SUPERINTENDENT CHEMISTRY ORDERABLES Final Result [facility] [address] [place] [address] from Last 3 Months Insurance [facility] Care Teams Occupational Psychologist Relationship Specialty Start Date End Date Yehuda Hearn MD [address] [place] [address] PCP - General Internal Medicine 12/08/24 Elisha Alvarado APRN, BUILDING MAINTENANCE SUPERINTENDENT [address] [place] [address] Nurse Practitioner Advanced Practice Nurse 02/18/25
--- OUTSIDE RECORDS SUMMARY | 2025-05-09 15:45 | XMS_ITS | Encounter Summary ---
Author Organization [facility] Address [address] [place] [address] Care Team Providers Care Director Advertising Name Role Phone Duke Castillo MD Primary Care Provider Unavailable Encounter Details Date Type Department Care Team (Latest Contact Info) Description 08/22/1999 Outpatient Historical [facility],NON-PATIENT Duke Castillo MD NO ADDRESS ON FILE Laboratory examination (Primary Dx) Social History Tobacco Use Types Packs/Day Years Used Date Smoking Tobacco: Never Assessed Comments Unknown Sex and Gender Information Value Date Recorded Sex Assigned at Not on file Legal Sex Female 5:20 AM FORESTRY CONSULTANT Gender Identity Not on file Sexual Orientation Not on file documented as of this encounter Plan of Treatment Not on file documented as of this encounter Visit Diagnoses Diagnosis Laboratory examination- Primary documented in this encounter Care Teams Director Advertising Relationship Specialty Start Date End Date Duke Castillo MD PCP - General 01/08/00 documented as of this encounter
--- OUTSIDE RECORDS SUMMARY | 2025-05-09 15:45 | XMS_ITS | Encounter Summary ---
Author Organization [facility] Address [address] [place] [address] Care Team Providers Care Generator Rebuilder Name Role Phone Duke Castillo MD Primary Care Provider Unavailable Encounter Details Date Type Department Care Team (Late st Contact Info) Description 01/08/2000 Emergency [facility] Andriy Pierson, [id number] [place] [address] Er, Authorized P NO ADDRESS ON FILE state, incidental (Primary Dx) Social History Tobacco Use Types Packs/Day Years Used Date Smoking Tobacco: Never Assessed Comments Unknown Sex and Gender Information Value Date Recorded Sex Assigned at Not on file Legal Sex Female 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
--- OUTSIDE RECORDS SUMMARY | 2025-05-09 15:45 | XMS_ITS | Clinical Summary ---
Author Organization [facility] Address [address] [place] [address] Care Team Providers Care Deportation Examiner Name Role Phone Yehuda Hearn MD Primary Care Provider [phone] Allergies No known active allergies Medications rizatriptan [...] 68 12/23/2019 5:08 AM CDT Temperature 37 C (98.6 F) 12/23/2019 5:08 AM CDT Respiratory Rate 20 12/23/2019 5:08 AM CDT Oxygen Saturation 100% 12/23/2019 5:08 AM CDT Inhaled Oxygen Concentration - - Weight 98.9 kg (218 lb) 12/23/2019 5:08 AM CDT Height 167.6 cm (5' 6) 12/23/2019 5:08 AM CDT Body Mass Index 35.19 12/23/2019 5:08 AM CDT Plan of Treatment Health Maintenance Due Date Last Done Comments Colorectal Cancer Screening Colonoscopy (10 Years) 1980 Annual Physical 1983 Hepatitis C 1998 DTaP, Tdap and Td Vaccines ( 1 - Tdap) 1999 Hepatitis B Vaccines (1 of 3 - 19+ 3-dose series) 1999 HPV Vaccines (1 - 3-dose SCD M series) 2007 Mammogram Screening 2020 COVID-19 Vaccine (2024-2 6 season) 2025 Influenza Adult (#1) 2025 Hepatitis A Vaccines Aged Out No long er eligible based on patient's age to complete this topic Meningococcal B Vaccine Aged Out No l onger eligible based on patient's age to complete this topic Meningococcal Vaccine Aged Out No josue jack eligible based on patient's age to complete this topic Pneumococcal Vaccine: Pediat rics (0 to 5 Years) and At-Risk Patients (6 to 49 Years) Aged Out No longer eligible b ased on patient's age to complete this topic RSV Immunizations Under 20 Months Aged Out No longer eligible based on patient's age to complete this topic Insurance [facility] Care Teams Deportation Examiner Relationship Specialty Start Date End Date Yehuda Hearn MD [address] [place] [address] PCP - General INTERNAL MEDICINE 01/07/19
--- OUTSIDE RECORDS SUMMARY | 2025-05-09 15:45 | XMS_ITS | Clinical Summary ---
Author Organization [facility] Address [address] [place] [address] Care Team Providers Care Perfect Binder Setter Name Role Phone Yehuda Hearn MD Primary Care Provider [phone] Yehuda Hearn MD Unavailable [phone] Jeff Browne NP Unavailable [phone] Allergies Active Allergy Reactions Criticality Noted Date Comments Iodinated Contrast Media Hives High 12/24/2013 Topiramate Other (See comments) Low 04/03/2020 Ringing in ears Medications erenumab-aooe 140 mg/mL auto-injector Inject 140 mg under the skin every 28 (twenty-eight) days 3 mL 3 3 Active rizatriptan (MAXALT) 10 mg tabletIndication s:Migraine Take 1 tablet (10 mg total) by mouth once as needed for migraine May repeat in 2 hours if unresolved. Do not exceed 30 mg in 24 hours. 27 tablet 3 3 Active ondansetron (ZOFRAN) 4 mg tabletIndication s:Prevention of Post-Operative Nausea and Vomiting Take 1 tablet (4 mg total) by mouth every 6 (six) hours as needed for nausea or vomiting 30 tablet 1 4 Active pregabalin (LYRICA) 75 mg capsule 4 Active HYDROcodone-acet aminophen (NORCO) 5-325 mg per tabletIndication s:Pain Take 1-2 tablets by mouth every 4 (four) hours as needed for pain Max 8 tabs per day 42 tablet 5 Active Additional Information Patient not taking.Reported on 12/03/2024 amoxicillin (AMOXIL) 500 mg tablet/capsule Take 4 tablets (2000 mg) 1 hour prior to dental procedure. 4 tablet/capsu le 3 5 Active Additional Information Patient not taking.Reported on 12/03/2024 Nurtec ODT tablet,disintegr ating Take 1 tablet (75 mg total) by mouth as needed 5 Active celecoxib (CeleBREX) 200 mg capsuleIndicatio ns:It band syndrome, right,Pain due to total right knee replacement, initial encounter Take 1 capsule (200 mg total) by mouth 2 (two) times a day 60 capsule 11 5 Active nystatin powderIndication s:Abnormal mammogram,Mass of left breast, unspecified quadrant,Encount er for screening mammogram for malignant neoplasm of breast,Skin rash Apply topically 4 (four) times a day To skin folds under the bilateral breast. 30 g 1 5 02/16/20 26 Active Active Problems Problem Noted Date Diagnosed Date It band syndrome, right 12/03/2024 Status post total knee replacement, right 2023 Primary osteoarthritis of right knee 01/30/2024 Tear of medial meniscus of knee 06/28/2022 09/23/2022 Arthralgia of right knee 06/27/2022 Migraine without aura, with intractable migraine, so stated, with status migrainosus 04/05/2020 Subarachnoid cyst 04/05/2020 Endometriosis 12/24/2013 Chronic pelvic pain in female 12/24/2013 Bladder pain 12/24/2013 09/23/2022 Spastic pelvic floor syndrome 12/24/2013 Encounters Date Type Department Care Team Description 02/15/2025 10:30 AM CDT Office Visit [facility] Medicine Surgery [address] [place] [address] Annamarie Harper NP Abnormal mammogram (Primary Dx); Mass of left breast, unspecified quadrant; Encounter for screening mammogram for malignant neoplasm of breast; Skin rash 02/15/2025 8:26 AM CDT - 02/15/2025 11:59 [place] [address] Abnormal mammogram; Breast mass in female Discharge Disposition: Discharge to home or self care from Last 3 Months Surgical History Surgery Date Site/Laterality Comments TONSILLECTOMY TYMPANOSTOMY TUBE PLACEMENT COLONOSCOPY LAPAROSCOPY HYSTERECTOMY KNEE SURGERY Right meniscal repair REPLACEMENT TOTAL KNEE CHOLECYSTECTOMY APPENDECTOMY same time as gallbladder removal SINUS SURGERY BREAST BIOPSY 08/05/2024 Left Medical History Medical History Date Comments Kidney stone Endometriosis Migraines PONV (postoperative nausea and vomiting) Family History Medical History Relation Name Comments Diabetes Mother Uterine cancer Mother Arthritis Other Cancer Other Diabetes Other Relation Name Status Comments Mother Other Social History Tobacco Use Types Packs/Day Years Used Date Smoking Tobacco: Never Smokeless Tobacco: Never Tobacco Cessation:Counseling Given: Not Answered AUDIT-C Answer Date Recorded Q1: How often do you have a drink containing alcohol? Never 09/08/2024 Q2: How many drinks containi ng alcohol do you have on a typical day when you are drinking? Patient does not drink Q3: How often do you have si x or more drinks on one occasion? Never 09/08/2024 PHQ-2 Answer Date Recorded PHQ-2 Total Score [...] on file Legal Sex Female 4:57 AM DIRECTOR PROFESSIONAL SERVICES Gender Identity Female 02/05/2024 9:37 AM CDT Sexual Orientation Straight 12/24/2022 10 :40 AM CDT Last Filed Vital Signs Vital Sign Reading Time Taken Comments Blood Pressure 130/88 02/15/2025 9:53 AM CDT Pulse 90 02/15/2025 9:53 AM CDT Temperature 36.3 C (97.3 F) 02/15/2025 9:53 AM CDT Respiratory Rate 18 02/15/2025 9:53 AM CDT Oxygen Saturation 96% 02/15/2025 9:53 AM CDT Inhaled Oxygen Concentration - - Weight 112.6 kg (248 lb 3.2 oz) 02/15/2025 9:53 AM CDT Height 167.6 cm (5' 6) 02/15/2025 9:53 AM CDT Body Mass Index 40.06 02/15/2025 9:53 AM CDT Plan of Treatment Health Maintenance Due Date Last Done Comments Breast Cancer Screening-Mammogram 1980 Colon Cancer Screening-Colonoscopy 1980 Hepatitis C Screening 1980 DTaP/Tdap/Td Vaccine (1 - Tdap) 1991 Varicella Vaccines (1 of 2 - 13+ 2-dose series) 1993 Hepatitis B Screening 1998 Regular Well Visit/Exam 18-64 1998 HPV Vaccines (1 - 3-dose SCD M series) 2007 Depression Screening 06/12/2024 06/12/2023, 06/12/2023 Influenza Vaccine (#1) 2025 Pneumococcal vaccine <65 Aged Out No longer eligible based on patient's age to complete this topic Medical Devices Implanted Type Area Supervisor Case Loading Device Identifier Shelf Expiration Date Model / Serial / Lot Bard Peripheral Vascular Ultraclip Bard 17ga 10cm 2 Trigger Permanent Ultrasound [id number] - [id number] Implanted:Qty: 1 on 08/05/2024 at [facility] Left: Breast Bard Peripheral Vascular [id number] 02/06/2027 [id number] / / [id number] [employer] Attune Cruciate Retain Cementless Knee Right 4 Component Femoral [id number] - [id number] Implanted:Qty: 1 on 02/17/2024 by Roosevelt Winchester MD at [facility] Right: Knee [employer] [id number] 12/09/2033 [id number] / / [id number] [employer] Insert Tibial Knee Fixed Rm Posterior Stabilized Attune 8mm Size 4 Polyethylene [id number] - [id number] Implanted:Qty: 1 on 02/17/2024 by Roosevelt Winchester MD at [facility] Right: Knee [employer] [id number] 12/09/2030 [id number] / / [id number] [employer] Attune Fb Tib Base Sz 4 Por [id number] - [id number] Implanted:Qty: 1 on 02/17/2024 by Roosevelt Winchester MD at [facility] Right: Knee [employer] [id number] 01/09/2034 [id number] / / [id number] Procedures Procedure Name Priority Date/Time Associated Diagnosis Comments US BREAST LEFT LIMITED Schedule Routine, Read Routine (OP Routine) 02/15/2025 9:22 AM CDT Abnormal mammogram Breast mass in female from Last 3 Months Results * US Breast Left Limited (02/15/2025 9:22 AM CDT) Anatomical Region Laterality Modality Breast Left Ultrasound 02/15/2025 2:53 PM CDT Impressions 02/15/2025 2:53 PM CDT Stable hypoechoic mass in the LEFT breast at the 3:30 position, 11 cm from the nipple. Recommend continued follow-up of this probably benign finding in June 2025 with LEFT breast ultrasound (which will be one year from the original ultrasound evaluation of this finding). At that time, the patient will be due for annual bilateral mammogram. OVERALL FINAL ASSESSMENT: BI-RADS Category 3: Probably Benign. RECOMMENDATION: Recommend follow-up LEFT breast ultrasound in June 2025. At that time, the patient will be due for annual bilateral mammogram. Dr. Raza discussed the above findings and recommendations with the patient, who expressed her understanding of the management plan. Electronically signed by: Nehal Raza M.D. Narrative 02/15/2025 2:53 PM CDT EXAMINATION: LEFT BREAST ULTRASOUND HISTORY: 44-year-old woman presenting for follow-up of probably benign mass in the LEFT breast at the 3:30 position, 11 cm from the nipple. 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 COMPARISON: Left breast ultrasound from 06/22/2024 and 05/21/2024. TECHNIQUE: Directed ultrasound evaluation of the LEFT breast was performed by a trained acute care physical therapist and by Dr. Raza. ULTRASOUND FINDINGS: Targeted ultrasound of the LEFT breast was performed. At the 3:30 position, 11 cm from the nipple, there is a stable 0.6 x 0.2 x 0.4 cm circumscribed parallel oval hypoechoic mass without internal vascularity or significant posterior features, which is unchanged from 06/22/2024. Annamarie Harper EXECUTIVE VICE PRESIDENT OF SALES IMG MAMMO PROCEDURES Fi nal Result from Last 3 Months Insurance [facility] [place] [id number] Advance Directives For more information, please contact: [phone] * Full Code (Latest Code Status on File) Date Activated Date Inactivated Comments 02/17/2024 10:44 AM 02/17/2024 8:06 PM Care Teams Perfect Binder Setter Relationship Specialty Start Date End Date Yehuda Hearn MD PCP - General 04/24/20 Yehuda Hearn MD Internal Medicine 04/24/20 Jeff Browne NP [address] [place] [address] DR DANIELSON [address] [place] [id number] Nurse Practitioner Orthopedic Surgery 02/17/24
[2025-05-09 17:36] LABS: Vitamin B12 547.0 pg/mL (239-931)
== END 2025-05-09 15:39 | disposition home or self-care (01) ==
LOC: CHSLAB 15:41
PROVIDERS: PCP Internal Medicine; Visit Provider Clinical Nurse Specialist Adult Health
DX: E53.8 Deficiency of other specified B group vitamins (principal)
CPT/HCPCS: 36415; 82607